=== PATIENT | male | born 1945 | race Caucasian/White ===

== ENCOUNTER → 2016-06-20 | Outpatient (CLI) | payer MEDICARE, OTHER ==
[~2016-06-20] VITALS: Ht 170.2 cm; Wt 114.8 kg
[~2016-06-20] MED LIST: /AUGM875TA; ACET65TA OR; AMITIZA; ASPI325T; ASPI325T OR; ASPIRIN PO; BENI20TA11 OR; CALCTAB93 PO; FISHCAP; FLAG500T; Fish oil OR; LEVSIN; LIDOCAINE 2% INJ 100 MG/5 ML SDV (FOR ANES.) As Ordered ONE; LISI5TAB; LOPR50TA OR; LOVA1CAP17 PO; METO25TAB PO; METO50TA4 OR; MINOCYCLINE PO; MULTLIQ7 PO; NIAC500T; NIAC500T OR; PERC5TAB8; PERCOCET PO; PLAV75TA PO; PLAV75TA2 OR; PROPOFOL 200 MG/20 ML VIAL As Ordered ONE; SENO8.6T9 PO; SIME80TA PO; SIMV20TA2 OR; SIMV20TA2 PO; VICO5TAB OR; ZOFR4TAB3 SL; lomotil; maalox PO
[2016-06-20] MEDS: NS 1,000 ML IV SCH (09:22)
--- NOTE | 2016-06-20 10:08 | ROOR ---
Patient Name: Michi Sheikh Procedure Date: 06/20/2016 9:36 AM Date of : 1945 Age: 71 Room: [facility] Gender: Male Note Status: Finalized Procedure: Colonoscopy Indications: High risk colon cancer surveillance: Personal history of colon cancer Providers: Gerber Zelaya MD Referring MD: ILIA Gerardo Requesting Provider: Medicines: Monitored Anesthesia Care Complications: No immediate complications. Procedure: Pre-Anesthesia Assessment: - Prior to the procedure, a History and Physical was performed, and patient medications and allergies were reviewed. The patient is competent. The risks and benefits of the procedure and the sedation options and risks were discussed with the patient. All questions were answered and informed consent was obtained. Patient identification and proposed procedure were verified by the physician, the nurse and the film processing utility worker in the endoscopy suite. Mental Status Examination: alert and oriented. Airway Examination: normal oropharyngeal airway and neck mobility. Respiratory Examination: clear to auscultation. CV Examination: normal. Prophylactic Antibiotics: The patient does not require prophylactic antibiotics. Prior Anticoagulants: The patient has taken Plavix (clopidogrel), last dose was 5 days prior to procedure. ASA Grade Assessment: III - A patient with severe systemic disease. After reviewing the risks and benefits, the patient was deemed in satisfactory condition to undergo the procedure. The anesthesia plan was to use monitored anesthesia care (MAC). Immediately prior to administration of medications, the patient was re-assessed for adequacy to receive sedatives. The heart rate, respiratory rate, oxygen saturations, blood pressure, adequacy of pulmonary ventilation, and response to care were monitored throughout the procedure. The physical status of the patient was re-assessed after the procedure. The Colonoscope was introduced through the anus and advanced to the ileocolonic anastomosis. The colonoscopy was performed without difficulty. The patient tolerated the procedure well. The quality of the bowel preparation was good. Findings: The perianal and digital rectal examinations were normal. There was evidence of a prior end-to-side colo-rectal anastomosis in the distal rectum. This was patent and was characterized by healthy appearing mucosa. The anastomosis was traversed. Biopsies were taken with a cold forceps for histology. There was evidence of a prior functional end-to-end ileo-colonic anastomosis in the ascending colon. This was patent and was characterized by healthy appearing mucosa. The anastomosis was traversed. No additional abnormalities were found on retroflexion. Impression: - Patent end-to-side colo-rectal anastomosis, characterized by healthy appearing mucosa. Biopsied. - Patent functional end-to-end ileo-colonic anastomosis, characterized by healthy appearing mucosa. Recommendation: - Discharge patient to home (ambulatory). - Repeat colonoscopy in 3 years for surveillance. Gerber Zelaya MD Gerber Zelaya MD 06/20/2016 10:08:22 AM This report has been signed electronically. Number of Addenda: 0 Note Initiated On: 06/20/2016 9:36 AM Estimated Blood Loss: Estimated blood loss was minimal.
[2016-06-20 10:22] VITALS: BP 140/78
== END ==
LOC: M OPP 08:59
PROVIDERS: ATTEND Surgery
DX: Z12.11 Encounter for screening for malignant neoplasm of colon (principal); Z85.038 Personal history of other malignant neoplasm of large intestine; Z85.048 Personal history of other malignant neoplasm of rectum, rectosigmoid junction, and anus; Z86.010 Personal history of colon polyps; Z85.820 Personal history of malignant melanoma of skin; E78.00 Pure hypercholesterolemia, unspecified; I25.10 Atherosclerotic heart disease of native coronary artery without angina pectoris; I10 Essential (primary) hypertension; R23.3 Spontaneous ecchymoses; Z79.82 Long term (current) use of aspirin; Z79.01 Long term (current) use of anticoagulants; Z79.899 Other long term (current) drug therapy; Z98.0 Intestinal bypass and anastomosis status; Z95.5 Presence of coronary angioplasty implant and graft; Z86.14 Personal history of Methicillin resistant Staphylococcus aureus infection; Z87.891 Personal history of nicotine dependence; Z08 Encounter for follow-up examination after completed treatment for malignant neoplasm

== ENCOUNTER → 2017-01-08 | Outpatient (REF) | payer MEDICARE, OTHER ==
[~2017-01-08] MED LIST changes: -LIDOCAINE 2% INJ 100 MG/5 ML SDV (FOR ANES.) As Ordered ONE; +METO25TA4 PO; -METO25TAB PO; +PLAV1TAB2 PO; -PLAV75TA PO; -PROPOFOL 200 MG/20 ML VIAL As Ordered ONE
== END ==
LOC: M LABDRAW1 15:42
PROVIDERS: ATTEND Physician Assistant
DX: M51.36 Other intervertebral disc degeneration, lumbar region (principal)

== ENCOUNTER → 2017-08-07 | Outpatient (CLI) | payer MEDICARE, OTHER | LOC: M EKG 13:43 | DX: Z01.810 Encounter for preprocedural cardiovascular examination (principal); S83.231A Complex tear of medial meniscus, current injury, right knee, initial encounter; X58.XXXA Exposure to other specified factors, initial encounter; Y92.89 Other specified places as the place of occurrence of the external cause; Y93.89 Activity, other specified; Y99.8 Other external cause status | CPT/HCPCS: 93005 ==

== ENCOUNTER 2019-02-15 19:22 | Emergency (ER) | payer MEDICARE, OTHER ==
[~2019-02-15] VITALS: Ht 167.6 cm; Wt 118.2 kg
[~2019-02-15 19:22] MED LIST changes: +ONDA-228 SL; +OXYC1TAB23 PO; -PERCOCET PO; -ZOFR4TAB3 SL
[2019-02-15 21:15] LABS: CK-MB VALUE MASS 1.3 NG/ML (<3.6); CPK CREATINE PHOSPHOKINASE 91 U/L (39-308); MB/CK RELATIVE INDEX 1.43 (< OR =4); TROPONIN I < 0.02 NG/ML (< 0.10)
[2019-02-15 22:31] VITALS: BP 218/92
[2019-02-15] MEDS ORDERED: METOPROLOL TART 25 MG TABLET PO ONE (23:00)
--- NOTE | 2019-02-16 06:36 | ECGEPIP ---
[facility] - ED Test Date: 2019-02-15 Pat Name: MILADIS MCCORMICK Department: Room: - Gender: Male Teleradiologist: ANASTACIA : 1945 Requested By: BELKIS Miller Order Number: [id number] Reading MD: Arcelia Mcnamara Measurements Intervals Candor Rate: 80 P: 57 SC: 186 QRS: -21 QRSD: 98 T: 61 QT: 367 QTc: 425 Interpretive Statements SINUS RHYTHM WITH OCCASIONAL VENTRICULAR PREMATURE COMPLEXES BORDERLINE LEFT AXIS DEVIATION INCOMPLETE RIGHT BUNDLE BRANCH BLOCK NONSPECIFIC ST T WAVE CHANGES CW 08/07/17 RATE INCREASED DECREASED ECTOPY Electronically Signed on 02-16-2019 6:35:53 EDT by Arcelia Mcnamara
== END 2019-02-15 23:27 | disposition home or self-care (01) ==
LOC: M ED 19:22
DX: F41.1 Generalized anxiety disorder (principal); I10 Essential (primary) hypertension; E78.5 Hyperlipidemia, unspecified; I45.19 Other right bundle-branch block; Z91.14 Patient's other noncompliance with medication regimen; Z95.5 Presence of coronary angioplasty implant and graft; Z79.02 Long term (current) use of antithrombotics/antiplatelets; Z79.82 Long term (current) use of aspirin; Z79.899 Other long term (current) drug therapy; I25.10 Atherosclerotic heart disease of native coronary artery without angina pectoris

== ENCOUNTER → 2019-07-11 | Outpatient (CLI) | payer MEDICARE, OTHER ==
[~2019-07-11] MED LIST changes: -SIMV20TA2 PO; +SIMV20TA22 PO
--- NOTE | 2019-07-12 09:02 | REP ---
LEFT HAND COMPLETE: 07/11/2019. Clinical history: Pain and swelling dorsal aspect of the hand. Findings. Some minor soft tissue swelling about the proximal aspect of the metacarpals and the wrist on the lateral view. There is no fracture, avulsion or foreign body identified. No subcutaneous emphysema. I do not see any swelling of the digits. There are degenerative changes at IP joints. MCP joints were intact. No fractures of the phalanges or metacarpals. Carpal bones and the distal radius and ulna show some degenerative spurring but no fracture. Impression: 1. Mild soft-tissue swelling dorsal aspect of the hand and wrist over the proximal metacarpals and carpal bones. 2. Some degenerative changes. Soft tissue swelling but no fracture. Electronically Signed by Rojas Roland MD 07/12/2019 08:16 P
== END ==
LOC: M WUC 15:52
PROVIDERS: ATTEND Physician Assistant
DX: S60.222A Contusion of left hand, initial encounter (principal); M79.89 Other specified soft tissue disorders; M19.042 Primary osteoarthritis, left hand; X58.XXXA Exposure to other specified factors, initial encounter; Y92.9 Unspecified place or not applicable

== ENCOUNTER → 2020-05-14 | Outpatient (CLI) | payer MEDICARE, OTHER ==
[~2020-05-14] MED LIST changes: +DOXA1TAB41 PO; +VASC1CAP2 PO
== END ==
LOC: M LABSMTC 09:22
PROVIDERS: ATTEND Anesthesiology
DX: Z01.812 Encounter for preprocedural laboratory examination (principal); Z20.828 Contact with and (suspected) exposure to other viral communicable diseases

== ENCOUNTER → 2020-06-24 | Outpatient (CLI) | payer MEDICARE, OTHER ==
[~2020-06-24] MED LIST changes: +BAYE81TA10 PO; +ELIQ5TAB; +LOSA25TA14; +MULTTAB61 PO
== END ==
LOC: M LABSMTC 11:09
PROVIDERS: ATTEND Anesthesiology
DX: Z01.812 Encounter for preprocedural laboratory examination (principal); Z20.822 Contact with and (suspected) exposure to COVID-19

== ENCOUNTER 2020-06-29 08:50 | Day surgery (SDC) | payer MEDICARE, OTHER ==
[~2020-06-29] VITALS: Ht 175.3 cm; Wt 107.0 kg
[~2020-06-29 08:50] MED LIST changes: +NS 1,000 ML IV ONE
--- OUTSIDE RECORDS SUMMARY | 2020-06-29 08:54 | CCD | Continuity of Care Document ---
Author Author Michi ALMONTE Organization Unknown Address [address] [place] [address] Phone [phone] Care Team Providers Care Vegetable Loader Machine Operator Name Role Phone Derian Todd MD AUTM [phone] Hiral Moyer N.P. AUTM [phone] Gerber Zelaya MD AUTM [phone] Pancho Sepulveda PA AUTM [phone] Stephy Langford COMPUTER NUMERIC CONTROL SETTER AUTM [phone] Problems Active Problems Provider Date Coronary arteriosclerosis Henrique Escalera MD Onset: 012 Mixed hyperlipidemia Henrique Escalera MD Onset: 11/20/2011 Benign hypertensive heart disease without congestive h eart failure Henrique Escalera MD Onset: 11/20/2011 Patient post percutaneous transluminal coronary angioplasty Henrique Escalera MD Onset: 11/20/2011 Malignant tumor of descending colon Henrique Escalera MD Onse t: 11/20/2011 Preoperative cardiovascular examination Henrique Escalera MD Onset: 04/02/2012 Obesity Henrique Escalera MD Onset: 09/15/2012 Essential hypertension Bibi Anglin NP Onset: 6 Pure hypercholesterolemia Debbi Gonzales MD Onset: 017 Dyspnea Debbi Gonzales MD Onset: 09/24/2016 Pain in limb Debbi Gonzales MD Onset: 09/24/2016 Morbid obesity Suresh Almonte Onset: 019 Chest pain Suresh Almonte Onset: 019 Abnormal results of cardiovascular function studies Suresh Harrington Onset: 02/13/2019 Lumbosacral stenosis Suresh Almonte Onset: 2018 Paroxysmal atrial fibrillation Suresh Almonte Ons et: 05/30/2020 Mitral leaflet abnormality Sarah V Onset: 2019 Social History Type Date Description Comments Sex Unknown Tobacco Use Start: Unknown End: Unknown Quit 1970 Smoking Status Reviewed: 05/30/20 Quit 1970 ETOH Use Denies alcohol use Tobacco Use Start: Unknown End: Unknown Patient is a former smoker Recreational Drug Use Denies Drug Use Allergies, Adverse Reactions, Alerts Description No Known Drug Allergies Medications Active Medications SIG Qnty Indications Ordering Provide r Date Eliquis 5mg Tablets 1 by mouth twice a day 60tabs Suresh Almonte 2019 Simvastatin 40mg Tablets Take One Tablet By Mouth Every Day 90tabs Suresh Almonte 07/2018 Vascepa 1gm Capsules 2 by mouth twice a day 360caps Suresh Almonte 2018 Losartan Potassium 25mg Tablets take one tablet by mouth every day 90tabs Lev Almonte 06/06/2017 Metoprolol Succinate ER 25mg Tablets ER 24HR Take One Tablet By Mouth Every Day 90tabs Suresh Moore 09/21/2014 Nitrostat 0.4mg Tablets Sub 1 tab under tongue, repeat q5 mins x2, as needed for chest pain 25tabs Suresh Almonte 05/07/2014 Asa 81mg Tablets 1 po qd Bibi Anglin NP 02/12/2012 Co Q-10 100mg Capsules 1 by mouth every day prn Unknown Medications Administered in Office Medication SIG Qnty Indications Ordering Provider Date Regadenoson, 0.1 MG Injection Kvng 04/08/2012 Immunizations CPT Code Status Date Vaccine Lot # U-Flu Given 03/17/2020 Influenza,Unspecified U-Flu Given 03/17/2019 Influenza,Unspecified U-Flu Given 03/17/2018 Influenza,Unspecified 11309 Given 10/21/2015 Pneumococcal Immunization Vital Signs Date Vital Result Comment 05/30/2020 12:13pm BP Systolic Left Arm 142 mmHg BP Diastolic Left Arm 80 mmHg Heart Rate 86 /min Height 68 inches 5'8" 05/17/2020 8:29am BP Systolic Left Arm 130 mmHg BP Diastolic Left Arm 78 mmHg Heart Rate 66 /min Weight 241.00 lb Height 68 inches 5'8" BMI (Body Mass Index) 36.6 kg/m2 02/29/20 High Density Lipid 30 Low Density Lipid 37 Triglycerides 140 Total Cholesterol 89 O2 % BldC Oximetry 97 % BSA (Body Surface Area) 2.21 m2 Results Test Acquired Date Facility Test Result H/L Range Note Lipid Extended Panel 02/29/2020 [facility] [address] [place] [address] [phone] Creatine Kinase, Total 99 U/L Normal 44-196 Ast 17 U/L Normal 10-35 Alt 20 U/L Normal 9-46 Lipid 02/29/2020 [facility] [address] [place] [address] [phone] Cholesterol, Total 89 mg/dL Normal <200 HDL Cholesterol 30 mg/dL Low > Or = 40 Triglycerides 140 mg/dL Normal <150 LDL-Cholesterol 37 mg/dL(calc) Normal 1 Chol/HDLC Ratio 3.0 (calc) Normal <5.0 Non HDL Cholesterol 59 mg/dL(calc) Normal <130 2 Martín (SEE NOTE) 3 Laboratory test finding 02/29/2020 [facility] [address] [place], [place] [id number] [phone] Enhanced PDF Report [id number] SEE IMAGE 1 Reference range: <100 Desirable range <100 mg/dL for primary prevention; <70 mg/dL for patients with CHD or diabetic patients with > or = 2 CHD risk factors. LDL-C is now calculated using the Gerardo calculation, which is a validated novel method providing better accuracy than the Friedewald equation in the estimation of LDL-C. Marino RING et al. MENA. 2013;310(19): 4653-2330 (http://education.[employer].[place]/f aq/DDA499) 2 For patients with diabetes p wade 1 major ASCVD risk factor, treating to a non-HDL-C goal of <100 mg/dL (LDL-C of <70 mg/dL) is considered a the rapeutic option. 3 We received your handwritten test order and performed the AMA defined lipid panel. If this is not what you intended to order, please contact your local client relationship consultant immediately so that we may adjust our billing appropriately. You may also inquire about alternative or additional testing. Procedures Date Code Description Status 05/30/2020 54697 Echocardiography W/ECG Includes Cont Monitoring Completed 05/30/2020 98155 Doppler Color Flow Velocity Beronica ing Completed 05/30/2020 98175 Doppler Echocardiography Complet e Completed 05/17/2020 80514 Electrocardiogram Complete Compl eted Medical Devices Description No Information Available Encounters Type Date Location Provider Dx Diagnosis Office Visit 05/30/2020 11:45a [facility] Suresh Hall I25.10 Athscl heart disease of [place] coronary artery w/o ang pctrs I10 Essential (primary) hyperten kristian I48.0 Paroxysmal atrial fibrillati on Office Visit 05/17/2020 8:15a [facility] Z01.810 Encounter for preprocedural cardiovascular examination Z12.11 Encounter for screening for malignant neoplasm of colon I25.10 Athscl heart disease of [place] coronary artery w/o ang pctrs I10 Essential (primary) hyperten kristian E78.2 Mixed hyperlipidemia E66.8 Other obesity Assessments Date Code Description Provider 05/30/2020 I34.9 Nonrheumatic mitral valve disord er, unspecified Suresh Whitman 05/30/2020 I34.9 Nonrheumatic mitral valve disord er, unspecified Sarah V 05/30/2020 I25.10 Atherosclerotic hear t disease of [place] coronary artery without angina pectoris Suresh Almonte 05/30/2020 I25.10 Atherosclerotic hear t disease of [place] coronary artery without angina pectoris Suresh Almonte 05/30/2020 I25.10 Atherosclerotic hear t disease of [place] coronary artery without angina pectoris Sarah V 05/30/2020 I10 Essential (primary) hypertension Ranjbaran-Jahromi, Suresh 05/30/2020 I48.0 Paroxysmal atrial fibrillation R Sofie, [facility] 05/17/2020 Z01.810 Encounter for preprocedural card iovascular examination Gage [facility] 05/17/2020 Z12.11 Encounter for screening for silvino gnant neoplasm of colon Gage [facility] 05/17/2020 I25.10 Atherosclerotic hear t disease of [place] coronary artery without angina pectoris Gage Suresh 05/17/2020 I10 Essential (primary) hypertension Gage [facility] 05/17/2020 E78.2 Mixed hyperlipidemia IlaLillian leonardatierneyotilio, [facility] 05/17/2020 E66.8 Other obesity FeliciaonbrannonSuresh Almendarez i Plan of Treatment Future Appointment(s):* 12/01/2020 1:00 pm - Shefali Waite NP at [facility] Functional Status Description No Information Available Mental Status Description No Information Available Referrals Description No Information Available
--- OUTSIDE RECORDS SUMMARY | 2020-06-29 08:54 | CCD | Continuity of Care Document ---
Author Author Michi Yeung Organization Unknown Address [address] [place] [address] [address] [place] [address] Phone Unavailable Care Team Providers Care Glass Handler Name Role Phone Derian Todd MD AUTM [phone] Hiral Moyer N.P. AUTM [phone] Gerber Zelaya MD AUTM [phone] Pancho Sepulveda AUTM [phone] Stephy Langford FACULTY RESEARCH PHYSICIAN AUTM [phone] Problems Active Problems Provider Date Coronary arteriosclerosis Henrique Escalera MD Onset: 012 Mixed hyperlipidemia Henrique Escalera MD Onset: 11/20/2011 Benign hypertensive heart disease without congestive h eart failure Henrique Ecsalera MD Onset: 11/20/2011 Patient post percutaneous transluminal [...] 02/13/2019 Lumbosacral stenosis Suresh Almonte Onset: 2018 Social History Type Date Description Comments Sex Unknown Tobacco Use Start: Unknown End: Unknown Quit 1970 Smoking Status Reviewed: 09/16/19 Quit 1970 ETOH Use Denies alcohol use Tobacco Use Start: Unknown End: Unknown Patient is a former smoker Recreational Drug Use Denies Drug Use Allergies, Adverse Reactions, Alerts Description No Known Drug Allergies Medications Active Medications SIG Qnty Indications Ordering Provide r Date Simvastatin 40mg Tablets Take One Tablet By Mouth Every Day 90tabs [facility]age Suresh 07/2018 Plavix 75mg Tablets 1 by mouth every day 90tabs TrellLuistierneyotilio Suresh 02/10/2019 Vascepa 1gm Capsules 2 by mouth twice a day 360caps IlaAnatierneyotilioSuresh 2018 Losartan Potassium 25mg Tablets take one tablet by mouth every day 90tabs FelicianoKirillLev man 06/06/2017 Metoprolol Succinate ER 25mg Tablets ER 24HR Take One Tablet By Mouth Every Day 90tabs Irvinefrenelizabeth Teddy Suresh 09/21/2014 Nitrostat 0.4mg Tablets Sub 1 tab under tongue, repeat q5 mins x2, as needed for chest pain 25tabs IrvinharshaledaVilma Suresh 05/07/2014 Asa 81mg Tablets 1 po qd Bibi Anglin NP 02/12/2012 Co Q-10 100mg Capsules 1 by mouth every day prn Unknown Medications Administered in Office Medication SIG Qnty Indications Ordering Provider Date Regadenoson, 0.1 MG Injection Kvng 04/08/2012 Immunizations CPT Code Status Date Vaccine Lot # U-Flu Given 03/17/2020 Influenza,Unspecified U-Flu Given 03/17/2019 Influenza,Unspecified U-Flu Given 03/17/2018 Influenza,Unspecified 74196 Given 10/21/2015 Pneumococcal Immunization Vital Signs Date Vital Result Comment 05/17/2020 8:29am BP Systolic Left Arm 130 mmHg BP Diastolic Left Arm 78 mmHg Heart Rate 66 /min Weight 241.00 lb Height 68 inches 5'8" BMI (Body Mass Index) 36.6 kg/m2 02/29/20 High Density Lipid 30 Low Density Lipid 37 Triglycerides 140 Total Cholesterol 89 O2 % BldC Oximetry 97 % BSA (Body Surface Area) 2.21 m2 03/18/2019 3:52pm BP Systolic Left Arm 116 mmHg BP Diastolic Left Arm 70 mmHg Heart Rate 62 /min Weight 266.12 lb Height 68 inches 5'8" BMI (Body Mass Index) 40.5 kg/m2 O2 % BldC Oximetry 97 % BSA (Body Surface Area) 2.31 m2 Results Test Acquired Date Facility Test Result H/L Range Note Lipid Extended Panel 02/29/2020 [facility] [address] [place] [address] [phone] Creatine Kinase, Total 99 U/L Normal 44-196 Ast 17 U/L Normal 10-35 Alt 20 U/L Normal 9-46 Lipid 02/29/2020 [facility] [address] [place] [address] [phone] Cholesterol, Total 89 mg/dL Normal <200 HDL Cholesterol 30 mg/dL Low > Or = 40 Triglycerides 140 mg/dL Normal <150 LDL-Cholesterol 37 mg/dL(calc) Normal 1 Chol/HDLC Ratio 3.0 (calc) Normal <5.0 Non HDL Cholesterol 59 mg/dL(calc) Normal <130 2 Martín (SEE NOTE) 3 Laboratory test finding 02/29/2020 [facility] [address] [place], [place] [id number] [phone] Enhanced PDF Report [id number] SEE IMAGE 1 Reference range: <100 Desirable range <100 mg/dL for primary prevention; <70 mg/dL for patients with CHD or diabetic patients with > or = 2 CHD risk factors. LDL-C is now calculated using the Gerardo calculation, which is a validated novel method providing better accuracy than the Friedewald equation in the estimation of LDL-C. Marino RING et al. MENA. 2013;310(19): 5283-2723 (http://education.[employer]/f aq/HJD157) 2 For patients with diabetes p wade 1 major ASCVD risk factor, treating to a non-HDL-C goal of <100 mg/dL (LDL-C of <70 mg/dL) is considered a the rapeutic option. 3 We received your handwritten test order and performed the AMA defined lipid panel. If this is not what you intended to order, please contact your local client administrator immediately so that we may adjust our billing appropriately. You may also inquire about alternative or additional testing. Procedures Date Code Description Status 05/30/2020 23638 Echocardiography W/ECG Includes Cont Monitoring Completed 05/17/2020 02854 Electrocardiogram Complete Compl eted Medical Devices Description No Information Available Encounters Type Date Location Provider Dx Diagnosis Office Visit 05/17/2020 8:15a [facility] Suresh Hall I25.10 Athscl heart disease of [place] coronary artery w/o ang pctrs I10 Essential (primary) hyperten kristian E78.2 Mixed hyperlipidemia E66.8 Other obesity Assessments Date Code Description Provider 05/30/2020 I25.10 Atherosclerotic hear t disease of [place] coronary artery without angina pectoris Sarah V 05/30/2020 R07.9 Chest pain, unspecified Sarah V 05/17/2020 I25.10 Atherosclerotic hear t disease of [place] coronary artery without angina pectoris Suresh Almonte 05/17/2020 I10 Essential (primary) hypertension Suresh Almonte 05/17/2020 E78.2 Mixed hyperlipidemia Suresh Matthew 05/17/2020 E66.8 Other obesity Suresh Ford i Plan of Treatment Future Appointment(s):* 07/04/2020 11:15 am - Suresh Almonte at [facility] Functional Status Description No Information Available Mental Status Description No Information Available Referrals Description No Information Available
--- OUTSIDE RECORDS SUMMARY | 2020-06-29 08:54 | CCD | Continuity of Care Document ---
Author Author Michi YANCEY Organization Unknown Address [address] [facility] [address] [place] [address] Phone [phone] Care Team Providers Care Corporate Traffic Manager Name Role Phone Derian Todd MD AUTM [phone] Hiral Moyer N.P. AUTM [phone] Gerber Zelaya MD AUTM [phone] Pancho Sepulveda PA AUTM [phone] Stephy Langford SOCIAL SERVICES MANAGER AUTM [phone] Problems Active Problems Provider Date Coronary arteriosclerosis Henrique Escalera MD Onset: 012 Mixed hyperlipidemia Henrique Escalera MD Onset: 11/20/2011 Benign hypertensive heart disease without congestive h eart failure Henrique Escalera MD Onset: 11/20/2011 Patient post percutaneous transluminal coronary angioplasty Henrique Escalera MD Onset: 11/20/2011 Malignant tumor of descending colon Henrique Escalera MD Onse t: 11/20/2011 Preoperative cardiovascular examination Henrique sEcalera MD Onset: 04/02/2012 Obesity Henrique Escalera MD Onset: 09/15/2012 Essential hypertension Bibi Anglin NP Onset: 6 Pure hypercholesterolemia Debbi Gonzales MD Onset: 017 Dyspnea Debbi Gonzales MD Onset: 09/24/2016 Pain in limb Debbi Gonzales MD Onset: 09/24/2016 Morbid obesity Suresh Yancey Onset: 019 Chest pain Suresh Yancey Onset: 019 Abnormal results of cardiovascular function studies Suresh Harrington Onset: 02/13/2019 Lumbosacral stenosis Suresh Yancey Onset: 2018 Paroxysmal atrial fibrillation Suresh Yancey Ons et: 05/30/2020 Mitral leaflet abnormality Sarah [...] 1 by mouth twice a day 60tabs Gage Suresh 2019 Simvastatin 40mg Tablets Take One Tablet By Mouth Every Day 90tabs Suresh Yancey 07/2018 Vascepa 1gm Capsules 2 by mouth twice a day 360caps Suresh Yancey 2018 Losartan Potassium 25mg Tablets take one tablet by mouth every day 90tabs AlonzotierneyLev yañez 06/06/2017 Metoprolol Succinate ER 25mg Tablets ER 24HR Take One Tablet By Mouth Every Day 90tabs Pete wrightVilma Suresh 09/21/2014 Nitrostat 0.4mg Tablets Sub 1 tab under tongue, repeat q5 mins x2, as needed for chest pain 25tabs TrellAlexsander Suresh 05/07/2014 Asa 81mg Tablets 1 po qd Bibi Anglin NP 02/12/2012 Co Q-10 100mg Capsules 1 by mouth every day prn Unknown Medications Administered in Office Medication SIG Qnty Indications Ordering Provider Date Regadenoson, 0.1 MG Injection Kvng 04/08/2012 Immunizations CPT Code Status Date Vaccine Lot # U-[id number] Given 03/17/2020 Influenza,Unspecified U-Flu Given 03/17/2019 Influenza,Unspecified U-Flu Given 03/17/2018 Influenza,Unspecified [id number] Given 10/21/2015 Pneumococcal Immunization Vital Signs Date [...] Date Facility Test Result H/L Range Note CBC W/Automated Diff 06/22/2020 [facility] CBC W/Automated Diff (SEE NOTE) 1 WBC 6.5 10^3/uL 4.2 - 11.0 RBC 4.72 10^6/uL 4.50 - 6.30 Hemoglobin 15.2 g/dL 14.0 - 16.0 Hematocrit 44.3 % 41.0 - 51.0 MCV 93.9 fL 80.0 - 94.0 MCH 32.2 pg 27.0 - 34.0 MCHC 34.3 g/dL 31.0 - 36.0 RDW 11.6 % 11.5 - 14.8 Platelets 293 10^3/uL 150 - 450 MPV 8.9 fL 7.4 - 10.4 Neut 58.5 % 37.0 - 80.0 Lymph 29.6 % 25.0 - 40.0 [place] 8.5 % High 3.0 - 8.0 Eos 2.3 % 0.0 - 7.0 Baso 0.6 % 0.0 - 2.0 %Ig 0.5 % High 0.0 - 0.0 %NRBC 0.0 % 0.0 - 0.0 #Neut 3.77 10^3/uL 2.00 - 6.90 #Lymph 1.91 10^3/uL 0.60 - 3.40 #[place] 0.55 10^3/uL 0.00 - 0.90 #Eos 0.15 10^3/uL 0.00 - 0.70 #Baso 0.04 10^3/uL 0.00 - 0.20 #Ig 0.03 10^3/uL 0.00 - 0.10 #NRBC 0.00 10^3/uL 0.00 - 0.00 Manual Diff NOT INDICATED RBC Morph NOT INDICATED Lab - Unable To Process Specimen 06/21/2020 [facility] - Specimen Rejec (SEE NOTE) 2 Test(s) Ordered CBCW/DIFF Rejection Reason No Spec Received 3 Basic Metabolic Panel 06/21/2020 [facility] Basic Metabolic Pane (SEE NOTE) 4, 5 Sodium 138 mEq/L 134 - 153 Potassium 4.3 mEq/L 3.6 - 5.0 Chloride 98 mEq/L 98 - 107 Co2 30 mEq/L 22 - 30 Glucose 100 mg/dL 65 - 110 BUN 20 mg/dL 7 - 21 Creatinine 0.9 mg/dL 0.7 - 1.5 BUN/Creat 22 8 - 27 Calcium 10.3 mg/dL High 8.4 - 10.2 Anion Gap 10.0 mmol/L 8.0 - 16.0 Age 75 yrs Afr Amer GFR >60 mL/min Non-Aa GFR >60 mL/min 6 Laboratory test finding 06/21/2020 [facility] l T4 - Free 0.95 ng/dL 0.93 - 1.70 TSH Highly Sensitive 8.77 uIU/mL High 0.47 - 5.01 Lipid Extended Panel 02/29/2020 [facility] [address] [place] [address] [address] [place], [place] [id number] [phone] Creatine Kinase, Total 99 U/L Normal 44-196 Ast 17 U/L Normal 10-35 Alt 20 U/L Normal 9-46 Lipid 02/29/2020 [facility] [address] [place] [address] RD [address] [place], [place] [id number] [phone] Cholesterol, Total 89 mg/dL Normal <200 HDL Cholesterol 30 mg/dL Low > Or = 40 Triglycerides 140 mg/dL Normal <150 LDL-Cholesterol 37 mg/dL(calc) Normal 7 Chol/HDLC Ratio 3.0 (calc) Normal <5.0 Non HDL Cholesterol 59 mg/dL(calc) Normal <130 8 Martín (SEE NOTE) 9 Laboratory test finding 02/29/2020 [facility] [address] [place] [address] [address] [place], [place] [id number] [phone] Enhanced PDF Report [id number] SEE IMAGE 1 COMPLETE BLOOD COUNT 2 Specimen Integrity/Specimen Recollection The patient sample needs to be resubmitted for the following reason: 3 No Spec Received { One or more of the tests you ordered cannot be performed. { Please recollect, reorder, and resubmit if needed. 4 Is patient fasting? N 5 BASIC METABOLIC PANEL 6 Male GFR Interprentation 20-49 yrs >60 mL/min Normal 50-59 yrs >56 mL/min Normal 60-69 yrs >49 mL/min Normal 70-79yrs >42 mL/min Normal 80 and above >35 mL/min Normal Female GFR Interpretation 20-39 yrs >60 mL/min Normal 40-49 yrs >58 mL/min Normal 50-59 yrs >51 mL/min Normal 60-69 yrs >45 mL/min Normal 70-79 yrs >39 mL/min Normal 80 and above >32 mL/min Normal 7 Reference range: <100 Desirable range <100 mg/dL for primary prevention; <70 mg/dL for patients with CHD or diabetic patients with > or = 2 CHD risk factors. LDL-C is now calculated using the Marino-Marion calculation, which is a validated novel method providing better accuracy than the Friedewald equation in the estimation of LDL-C. Marino SS et al. MENA. 2013;310(19): 1922-7205 (http://education.[employer].com/f aq/BIT841) 8 For patients with diabetes p wade 1 major ASCVD risk factor, treating to a non-HDL-C goal of <100 mg/dL (LDL-C of <70 mg/dL) is considered a the rapeutic option. 9 We received your handwritten test order and performed the AMA defined lipid panel. If this is not what you intended to order, please contact your local client services director immediately so that we may adjust our billing appropriately. You may also inquire about alternative or additional testing. Procedures Date Code Description Status 05/30/2020 02972 Echocardiography W/ECG Includes Cont Monitoring Completed 05/30/2020 74402 Doppler Color Flow Velocity Beronica ing Completed 05/30/2020 09329 Doppler Echocardiography Complet e Completed 05/17/2020 02503 Electrocardiogram Complete Compl eted Medical Devices Description No Information Available Encounters Type Date Location Provider Dx Diagnosis [facility] Athscl heart disease of [place] coronary artery w/o ang pctrs I10 Essential (primary) hyperten kristian I48.0 Paroxysmal atrial fibrillati on Office Visit 05/17/2020 8:15a [facility] Feliciano hertoritoDavidheber, Suresh Z01.810 Encounter for preprocedural cardiovascular examination Z12.11 Encounter for screening for malignant neoplasm of colon I25.10 Athscl heart disease of [place] coronary artery w/o ang pctrs I10 Essential (primary) hyperten kristian E78.2 Mixed hyperlipidemia E66.8 Other obesity Assessments Date Code Description Provider 05/30/2020 I34.9 Nonrheumatic mitral valve disord er, unspecified Pallavian- Davidhromi, [facility] 05/30/2020 I34.9 Nonrheumatic mitral valve disord er, unspecified Sarah V 05/30/2020 I25.10 Atherosclerotic hear t disease of [place] coronary artery without angina pectoris Pallavian-Davidhromi, [facility] 05/30/2020 I25.10 Atherosclerotic hear t disease of [place] coronary artery without angina pectoris Pallavian-Davidhromi, [facility] 05/30/2020 I25.10 Atherosclerotic hear t disease of [place] coronary artery without angina pectoris Sarah V 05/30/2020 I10 Essential (primary) hypertension Pallavian-Davidhromi, [facility] 05/30/2020 I48.0 Paroxysmal atrial fibrillation R josue-Luisomi, [facility] 05/17/2020 Z01.810 Encounter for preprocedural card iovascular examination Ila-Luisomi, [facility] 05/17/2020 Z12.11 Encounter for screening for silvino gnant neoplasm of colon Pallavian-Luisomi, [facility] 05/17/2020 I25.10 Atherosclerotic hear t disease of [place] coronary artery without angina pectoris Pallavian-Davidhromi, [facility] 05/17/2020 I10 Essential (primary) hypertension Pallavian-Davidhromi, [facility] 05/17/2020 E78.2 Mixed hyperlipidemia Ranharshalan-J ahromi, [facility] 05/17/2020 E66.8 Other obesity Suresh Ford i Plan of Treatment Future Appointment(s):* 12/01/2020 1:00 pm - Shefali Waite NP at [facility] Functional Status Description No Information Available Mental Status Description No Information Available Referrals Description No Information Available
--- OUTSIDE RECORDS SUMMARY | 2020-06-29 08:54 | CCD | Continuity of Care Document ---
Author Author Michi Yeung Organization Unknown Address [address] [place] [address] [address] [place] [address] Phone Unavailable Care Team Providers Care Physician Chief Of Pathology Name Role Phone Derian Todd MD AUTM [phone] Hiral Moyer N.P. AUTM [phone] Gerber Zelaya MD AUTM [phone] Pancho Sepulveda AUTM [phone] Stephy Langford MAINFRAME SYSTEMS ENGINEER AUTM [phone] Problems Active Problems Provider Date Coronary arteriosclerosis [...] Debbi Gonzales MD Onset: 09/24/2016 Morbid obesity Suersh Almonte Onset: 019 Chest pain Suresh Almonte Onset: 019 Abnormal results of cardiovascular function studies Suresh Harrington Onset: 02/13/2019 Lumbosacral stenosis Suresh Almonte Onset: 2018 Paroxysmal atrial fibrillation Suresh Almonte Ons et: 05/30/2020 Mitral leaflet abnormality Sarah Duran Onset: 2019 Social History Type Date Description [...] 1 by mouth twice a day 60tabs TrellAlexsander Suresh 2019 Simvastatin 40mg Tablets Take One Tablet By Mouth Every Day 90tabs Gage Suresh 07/2018 Vascepa 1gm Capsules 2 by mouth twice a day 360caps IrvinFredis Suresh 2018 Losartan Potassium 25mg Tablets take one tablet by mouth every day 90tabs IlaBrodyAlexsanderLev man 06/06/2017 Metoprolol Succinate ER 25mg Tablets ER 24HR Take One Tablet By Mouth Every Day 90tabs IrvinSuresh Black 09/21/2014 Nitrostat 0.4mg Tablets Sub 1 tab [...] Given 03/17/2019 Influenza,Unspecified U-Flu Given 03/17/2018 Influenza,Unspecified 63828 Given 10/21/2015 Pneumococcal Immunization Vital Signs Date [...] H/L Range Note Lipid Extended Panel 02/29/2020 [facility] [address] [place] [address] [phone] Creatine Kinase, Total 99 U/L Normal 44-196 Ast 17 U/L Normal 10-35 Alt 20 U/L Normal 9-46 Lipid 02/29/[address] [facility] [address] [place] [address] [phone] Cholesterol, Total 89 mg/dL Normal <200 HDL Cholesterol 30 mg/dL Low > Or = 40 Triglycerides 140 mg/dL Normal <150 LDL-Cholesterol 37 mg/dL(calc) Normal 1 Chol/HDLC Ratio 3.0 (calc) Normal <5.0 Non HDL Cholesterol 59 mg/dL(calc) Normal <130 2 Martín (SEE NOTE) 3 Laboratory test finding 02/29/2020 [facility] [address] [place], [place] [id number] [phone] Enhanced PDF Report [id number] SEE IMAGE 1 Reference range: <100 Desirable range <100 mg/dL for primary prevention; <70 mg/dL for patients with CHD or diabetic patients with > or = 2 CHD risk factors. LDL-C is now calculated using the Marino-Marion calculation, which is a validated novel method providing better accuracy than the Friedewald equation in the estimation of LDL-C. Marino RING et al. MENA. 2013;310(19): 9658-7406 (http://education.[employer].Brightpearl/f aq/XEV678) 2 For patients with diabetes p wade 1 major ASCVD risk factor, treating to a non-HDL-C goal of <100 mg/dL (LDL-C of <70 mg/dL) is considered a the rapeutic option. 3 We received your handwritten test order and performed the AMA defined lipid panel. If this is not what you intended to order, please contact your local new client banking services clerk immediately so that we may adjust our billing appropriately. You may also inquire about alternative or additional testing. Procedures Date Code Description Status 05/30/2020 60087 Echocardiography W/ECG Includes Cont Monitoring Completed 05/30/2020 81464 Doppler Color Flow Velocity Beronica ing Completed 05/30/2020 55762 Doppler Echocardiography Complet e Completed 05/17/2020 00486 Electrocardiogram Complete Compl eted Medical Devices Description No Information Available Encounters Type Date Location Provider Dx Diagnosis Office Visit 05/30/2020 11:45a [facility] Suresh Hall I25.10 Athscl heart disease of [place] coronary artery w/o ang pctrs I10 Essential (primary) hyperten kristian Z01.810 Encounter for preprocedural cardiovascular examination I48.0 Paroxysmal atrial fibrillati on Office Visit 05/17/2020 8:15a [facility] Suresh Hall I25.10 Athscl heart disease of [place] coronary artery w/o ang pctrs I10 Essential (primary) hyperten kristian E78.2 Mixed hyperlipidemia E66.8 Other obesity Assessments Date Code Description Provider 05/30/2020 I34.9 Nonrheumatic mitral valve disord er, unspecified Trell Beltre Suresh 05/30/2020 I34.9 Nonrheumatic mitral valve disord er, unspecified Sarah V 05/30/2020 I25.10 Atherosclerotic hear t disease of [place] coronary artery without angina pectoris Suresh Almonte 05/30/2020 I25.10 Atherosclerotic hear t disease of [place] coronary artery without angina pectoris Gage Suresh 05/30/2020 I25.10 Atherosclerotic hear t disease of [place] coronary artery without angina pectoris Sarah V 05/30/2020 I10 Essential (primary) hypertension Suresh Almonte 05/30/2020 Z01.810 Encounter for preprocedural card iovascular examination Suresh Almonte 05/30/2020 I48.0 Paroxysmal atrial fibrillation R Sofie Suresh 05/17/2020 I25.10 Atherosclerotic hear t disease of [place] coronary artery without angina pectoris Suresh Almonte 05/17/2020 I10 Essential (primary) hypertension Suresh Almonte 05/17/2020 E78.2 Mixed hyperlipidemia Karmen porras Suresh 05/17/2020 E66.8 Other obesity Suresh Ford i Plan of Treatment Future Appointment(s):* 12/01/2020 1:00 pm - Shefali Waite NP at [facility] Functional Status Description No Information Available Mental Status Description No Information Available Referrals Description No Information Available
--- OUTSIDE RECORDS SUMMARY | 2020-06-29 08:54 | CCD | Continuity of Care Document ---
Author Author [facility] Unknown Address [address] [place] [address] [address] [place] [address] Phone [phone] Care Team Providers Care Food Technology Teacher Name Role Phone Stephy Langford AUTM [phone] Suresh Almonte MD AUTM Unavailable Problems Active Problems Provider Date Essential hypertension AMY Quan, PNP Onset: 2018 Social History Type Date Description Comments Sex Unknown ETOH Use Denies alcohol use Tobacco Use Start: Unknown End: Unknown Patient is a former smoker Quit 1969 Recreational Drug Use Denies Drug Use Guns in Home Yes, Locked Up Smoke Alarms No Smoke Alarms Carbon Monoxide Detector: No Allergies, Adverse Reactions, Alerts Active Allergies Reaction Severity Comments Date NKEA 02/18/2019 NKFA 02/18/2019 Flomax Low Back Pain, resolved d/c Mild 05/16/2019 Inactive Allergies NKDA 02/18/2019 Medications Active Medications SIG Qnty Indications Ordering Provide r Date Doxazosin Mesylate 2mg Tablets Take One Tablet By Mouth Every Evening 30tabs AMY Quan , PNP 05/06/2019 Metoprolol Succinate ER 25mg Tablets ER 24HR 1 by mouth every day 30tabs Unknown 0 000 Clopidogrel Bisulfate 75mg Tablets 1 by mouth every day 90tabs Unknown Vascepa 1gm Capsules 1 by mouth twice a day Unknown Losartan Potassium 25mg Tablets 1 by mouth every day 30tabs Unknown Simvastatin 40mg Tablets 1 by mouth every day Unknown Aspirin Adult Low Strength 81mg Tablets DR 1 by mouth every day Unknown 0 000 Immunizations CPT Code Status Date Vaccine Lot # [id number] Given 03/21/2019 Influenza (>= 6 Months) P.F. Vaccine Vital Signs Date Vital Result Comment 06/18/2019 9:08am BP Systolic 140 mmHg BP Diastolic 70 mmHg Heart Rate 76 /min Body Temperature 98.2 F Respiratory Rate 18 /min O2 % BldC Oximetry 97 % Weight 287.00 lb Weight 130.183 kg Height 69 inches 5'9" BMI (Body Mass Index) 42.4 kg/m2 BSA (Body Surface Area) 2.41 m2 02/18/2019 9:04am BP Systolic 120 mmHg BP Diastolic 72 mmHg Heart Rate 67 /min Body Temperature 97.9 F Respiratory Rate 16 /min O2 % BldC Oximetry 92 % Weight 266.50 lb Weight 120.884 kg Height 69 inches 5'9" BMI (Body Mass Index) 39.4 kg/m2 BSA (Body Surface Area) 2.33 m2 Results Description No Information Available Procedures Description No Information Available Medical Devices Description No Information Available Encounters Description No Information Available Assessments Date Code Description Provider 06/21/2020 Z12.5 Encounter for screening for silvino gnant neoplasm of prostate [facility] Plan of Treatment Future Appointment(s):* 06/28/2020 11:20 am - AMY Quan, PNP at [facility] 06/18/2019 - AMY Quan, PNP* R97.20 Elevated prostate specific antigen [PSA]* Comments:* 2015 PSA 1.4709 PSA 3.3Due to pt's FH and Personal Hx Colon Cancer, pt has concerns about increasing PSA * Z12.11 Encounter for screening for malignant neoplasm of colon* Referral:* Gerber Zelaya, * I25.110 Atherosclerotic heart disease of [place] coronary artery with unstable angina pectoris* Comments:* PET positive for LAD Lesion. Coronary Angioplasty 03/04/19 Stent placed LAD, Stent placed Obtuse MarginalGood recovery, no further SOB or angina * Z95.5 Presence of coronary angioplasty implant and graft * E78.00 Pure hypercholesterolemia, unspecified* Comments:* Due for labs, cardiology will be doing labs this month, he can get them done there.FU 3 months, fasting labs 1 wk prior * N40.1 Benign prostatic hyperplasia with lower urinary tract symptoms* Comments:* Has never had Prostate Bx Functional Status Description No Information Available Mental Status Description No Information Available Referrals Description No Information Available
--- OUTSIDE RECORDS SUMMARY | 2020-06-29 08:54 | CCD | Continuity of Care Document ---
Author Author [facility] Unknown Address [address] [place] [address] [address] [place] [address] Phone [phone] Care Team Providers Care Strapping Machine Operator Name Role Phone Stephy Langford AUTM [phone] Suresh Amlonte MD AUTM Unavailable Problems Active Problems Provider [...] CPT Code Status Date Vaccine Lot # [id number] Given 03/21/2019 Influenza (>= 6 Months) P.F. [...] BSA (Body Surface Area) 2.33 m2 Results Test Acquired Date Facility Test Result H/L Range Note Laboratory test finding 06/21/2020 [facility] PSA - Diagnostic 3.93 ng/mL 0.00 - 4.00 1 1 \\BLDo\\PSA INTERPRETATION\\BLD x\\ The PSA assay should not be used alone for a screening test or diagnosis for presence or absence of malignant disease. Predictions of disease recurrence should not be based solely on values obtained from serial patient serum values. The PSA result was determined by "[employer]", on the Jeffry ANA 6000. Values obtained with different assay methods or kits cannot be used interchangeably. Procedures Description No Information Available Medical Devices Description No Information Available Encounters Description No Information Available Assessments Date Code Description Provider 06/21/2020 Z12.5 Encounter for screening for silvino gnant neoplasm of prostate [facility] Plan of Treatment Future Appointment(s):* 06/28/2020 11:20 am - AMY Quan, PNP at [facility] 06/18/2019 - AMY Quan, PNP* R97.20 Elevated prostate specific antigen [PSA]* Comments:* 2015 PSA 1.47002/18/2019 PSA 3.3Due to pt's FH and Personal Hx Colon Cancer, pt has concerns about increasing PSA * Z12.11 Encounter for screening for malignant neoplasm of colon* Referral:* Gerber Zelaya, * I25.110 Atherosclerotic heart disease of [place] coronary artery with unstable angina pectoris* Comments:* [...]
--- OUTSIDE RECORDS SUMMARY | 2020-06-29 08:54 | CCD | Continuity of Care Document ---
Author Author Michi ALMONTE Organization Unknown Address [address] [place] [address] Phone [phone] Care Team Providers Care Skin Specialist Name Role Phone Derian Todd MD AUTM [phone] Hiral Moyer N.P. AUTM [phone] Gerber Zelaya MD AUTM [phone] Pancho Sepulveda PA AUTM [phone] Stephy Langford GREENSKEEPER SUPERVISOR AUTM [phone] Problems Active Problems Provider Date Coronary arteriosclerosis [...] Given 03/17/2019 Influenza,Unspecified U-Flu Given 03/17/2018 Influenza,Unspecified 98704 Given 10/21/2015 Pneumococcal Immunization Vital Signs Date [...] H/L Range Note Lipid Extended Panel 02/29/2020 [facility] [address] [place] [address] [phone] Creatine Kinase, Total 99 U/L Normal 44-196 Ast 17 U/L Normal 10-35 Alt 20 U/L Normal 9-46 Lipid 02/29/2020 [facility] [address] [place] [address] [phone] Cholesterol, Total 89 mg/dL Normal <200 HDL Cholesterol 30 mg/dL Low > Or = 40 Triglycerides 140 mg/dL Normal <150 LDL-Cholesterol 37 mg/dL(calc) Normal 1 Chol/HDLC Ratio 3.0 (calc) Normal <5.0 Non HDL Cholesterol 59 mg/dL(calc) Normal <130 2 Martín (SEE NOTE) 3 Laboratory test finding 02/29/2020 [facility] [address] [place], [place] [id number] [phone] Enhanced PDF Report [id number] SEE IMAGE 1 Reference range: <100 Desirable range <100 mg/dL for primary prevention; <70 mg/dL for patients with CHD or diabetic patients with > or = 2 CHD risk factors. LDL-C is now calculated using the Gerardo calculation, which is a validated novel method providing better accuracy than the Friedewald equation in the estimation of LDL-C. Marino RING et al. MENA. 2013;310(19): 3202-6640 (http://education.Swidjit.Convozine/f aq/SQG428) 2 For patients with diabetes p wade 1 major ASCVD risk factor, treating to a non-HDL-C goal of <100 mg/dL (LDL-C of <70 mg/dL) is considered a the rapeutic option. 3 We received your handwritten test order and performed the AMA defined lipid panel. If this is not what you intended to order, please contact your local patient support representative immediately so that we may adjust our billing appropriately. You may also inquire about alternative or additional testing. Procedures Date Code Description Status 05/30/2020 20373 Echocardiography W/ECG Includes Cont Monitoring Completed 05/30/2020 50982 Doppler Color Flow Velocity Beronica ing Completed 05/30/2020 27562 Doppler Echocardiography Complet e Completed 05/17/2020 77922 Electrocardiogram Complete Compl eted Medical Devices Description No Information Available Encounters Type Date Location Provider Dx Diagnosis Office Visit 05/30/2020 11:45a [facility] Suresh Hall I25.10 Athscl heart disease of [place] coronary artery w/o ang pctrs I10 Essential (primary) hyperten kristian I48.0 Paroxysmal atrial fibrillati on Office Visit 05[facility]17[facility]2020 8[facility] Z01.810 Encounter for preprocedural [...] 05/30/2020 I25.10 Atherosclerotic hear t disease of [place] coronary artery without angina pectoris Suresh Almonte 05/30/2020 I25.10 Atherosclerotic hear t disease of [place] coronary artery without angina pectoris Suresh Almonte 05/30/2020 I25.10 Atherosclerotic hear t disease of [place] coronary artery without angina pectoris Sarah V 05/30/2020 I10 Essential (primary) hypertension Ranjbaran-Jahromi, Suresh 05/30/2020 I48.0 Paroxysmal atrial fibrillation R Sofie, [facility] 05/17/2020 Z01.810 Encounter for preprocedural card iovascular examination [facility] 05/17/2020 Z12.11 Encounter for screening for silvino gnant neoplasm of colon [facility] 05/17/2020 I25.10 Atherosclerotic hear t disease of [place] coronary artery without angina pectoris [facility] Suresh 05/17/2020 I10 Essential (primary) hypertension [facility] 05/17/2020 E78.2 Mixed hyperlipidemia IlaLillian leonardatierneyotilio, [facility] 05/17/2020 E66.8 Other obesity FelicianobrannonSuresh Almendarez i Plan of Treatment Future Appointment(s):* 12/01/2020 1:00 pm - Shefali Waite NP at [facility] Functional Status Description No Information Available Mental Status Description No Information Available Referrals Description No Information Available
--- OUTSIDE RECORDS SUMMARY | 2020-06-29 08:54 | CCD | Continuity of Care Document ---
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 Onset: 11/20/2011 Chest pain Onset: 02/10/2019 Coronary arteriosclerosis Onset: 012 Dyspnea Onset: 09/24/2016 Lumbosacral stenosis Onset: 02/10/2019 Malignant tumor of descending colon Onse t: 11/20/2011 Mixed hyperlipidemia Onset: 11/20/2011 Social History Type Date Description Comments Sex Unknown Tobacco Use Start: Unknown End: Quit Tobacco Use Start: Unknown Never Smoked Cigars Tobacco Use Start: Unknown Never Smoked A Pipe Tobacco Use Start: Unknown Never Used Smokeless Tobacco ETOH Use Denies alcohol use Tobacco Use Start: Unknown End: Unknown Patient is a former smoker Recreational Drug Use Denies Drug Use Guns in Home Yes, Locked Up Smoke Alarms No Smoke Alarms Carbon Monoxide Detector: No Allergies, Adverse Reactions, Alerts Active Allergies Reaction Severity Comments Date NKEA 02/18/2019 NKFA 02/18/2019 Flomax Low Back Pain, resolved d/c Mild 05/16/2019 Inactive Allergies NKDA 02/18/2019 Medications Active Medications SIG Qnty Indications Ordering Provide r Date Flomax 0.4mg Capsules 1 by mouth every day 30caps AMY Quan, PNP 06/28/19 21 Levothyroxine Sodium 50mcg Capsule s 1 tablet by mouth 1/2 hour before any other meds or food 90caps YAZMIN Quan- BC, PNP 06/28/2020 Vascepa 1gm Capsules 2 by mouth twice a day 360Suresh Montana MD 07/2018 Nitrostat 0.4mg Tablets Sub 1 tab under tongue, repeat q5 mins x2, as needed for chest pain 25tabs Suresh Almonte MD 05/07/2014 Metoprolol Succinate ER 25mg Tablets ER 24HR 1 by mouth every day 30tabs Unknown 0 000 Losartan Potassium 25mg Tablets 1 by mouth every day 30tabs Unknown Simvastatin 40mg Tablets 1 by mouth every day Unknown Aspirin Adult Low Strength 81mg Tablets DR 1 by mouth every day Unknown 0 000 Eliquis 5mg Tablets 1 by mouth twice a day 60tabs Suresh Almonte MD Immunizations CPT Code Status Date Vaccine Lot # [id number] Given 03/21/2019 Influenza (>= 6 Months) P.F. Vaccine Vital Signs Date Vital Result Comment 06/28/2020 11:26am BP Systolic 128 mmHg BP Diastolic 72 mmHg Heart Rate 58 /min Body Temperature 97.2 F Respiratory Rate 18 /min O2 % BldC Oximetry 97 % Weight 240.12 lb Weight 108.921 kg Height 69 inches 5'9" BMI (Body Mass Index) 35.5 kg/m2 BSA (Body Surface Area) 2.23 m2 06/18/2019 9:08am BP Systolic 140 mmHg BP Diastolic 70 mmHg Heart Rate 76 /min Body Temperature 98.2 F Respiratory Rate 18 /min O2 % BldC Oximetry 97 % Weight 287.00 lb Weight 130.183 kg Height 69 inches 5'9" BMI (Body Mass Index) 42.4 kg/m2 BSA (Body Surface Area) 2.41 m2 Results Test Acquired Date Facility Test Result H/L Range Note Laboratory test finding 06/21/2020 [facility] PSA - Diagnostic 3.93 ng/mL 0.00 - [...] or kits cannot be used interchangeably. Procedures Date Code Description Status 06/28/2020 41101 Admin Patient Focused Health Ris k Assessment Instrument Completed 06/28/2020 48122 Brief Emotional/Beha v Assessment W/ Scoring Doc Per Standard Inst Completed Medical Devices Description No Information Available Encounters Description No Information Available Assessments Date Code Description Provider 06/28/2020 Z00.01 Encounter for genera l adult medical examination with abnormal findings AMY Quan PNP 06/28/2020 I25.110 Atherosclerotic hear t disease of [place] coronary artery with unstable angina pectoris AMY Quan, [place] 06/28/2020 E78.00 Pure hypercholesterolemia, unspe cified AMY Quan, [place] 06/28/2020 I10 Essential (primary) hypertension AMY Quan PNP 06/28/2020 Z95.5 Presence of coronary angioplasty implant and graft AMY Quan, [place] 06/28/2020 R97.20 Elevated prostate specific antig en [PSA] AMY Quan, [place] 06/28/2020 R94.6 Abnormal results of thyroid func tion studies RENNY Quan, [place] 06/28/2020 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 Recent labs reviewed. Goal is to keep his health issues stable so he can remain active and live independently. * I25.110 Atherosclerotic heart disease of [place] coronary artery with unstable angina pectoris* Comments:* PET positive for LAD Lesion. Coronary Angioplasty 03/04/19 Stent placed LAD, Stent placed Obtuse MarginalHis recent stress echo showed new atrial fibrillation. To continue to follow up with cardiology as scheduled. * E78.00 Pure hypercholesterolemia, unspecified* Comments:* He is due for his lipids. Lab orders given. He will continue with his current regimen. He was encouraged to maintain a low cholesterol diet and a regular exercise regimen. We will continue to monitor. * Follow up:* FU 3 months, fasting labs 1 week prior * I10 Essential (primary) hypertension* Comments:* JNC8 Guidelines - Pt white Male > 60 prescribed Beta Bon, ARB. BP is at goal, 128/72. Continue current treatment and monitor. He will benefit from maintaining a low sodium diet. * Z95.5 Presence of coronary angioplasty implant and graft* Comments:* To continue to follow up with cardiology as scheduled.We will continue to monito r. * R97.20 Elevated prostate specific antigen [PSA]* Comments:* PSA at 3.93.To start Flomax 0.4 mg 1 cap PO daily.Due to pt's FH and Personal Hx Colon Cancer, pt has concerns about increasing PSA.We will [facility] to [facility] work. * Follow up:* FU 3 months, fasting labs 1 week prior * R94.6 Abnormal results of thyroid function studies* Comments:* TSH high at 8.77.To start Levothyroxine 50 mcg 1 tab PO hour before any other meds or food.We will continue to monitor through periodic blood work. 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 We will continue to monitor through periodic blood work. * Follow up:* FU in 3 months, fasting labs first. Functional Status Description No Information Available Mental Status Description No Information Available Referrals Description No Information Available
--- OUTSIDE RECORDS SUMMARY | 2020-06-29 08:54 | CCD | Continuity of Care Document ---
Author Author Michi FRANCIS Organization Unknown Address [address] [place] [address] Phone [phone] Care Team Providers Care Manager Corporate Strategy Name Role Phone Stephy Francis AUTM [phone] Suresh Almonte MD AUTM Unavailable Problems Active [...] Evening 30tabs AMY Quan , PNP 05/06/2019 Vascepa 1gm Capsules 2 by mouth twice a day 360caps Ranjbaran-Jahromi, Suresh MD 07/2018 Nitrostat 0.4mg Tablets Sub 1 tab under tongue, repeat q5 mins x2, as needed for chest pain 25tabs Suresh Almonte MD 05/07/2014 Metoprolol Succinate ER 25mg Tablets ER 24HR 1 by mouth every day 30tabs Unknown 000 Clopidogrel Bisulfate 75mg Tablets 1 by mouth every day 90tabs Unknown Losartan Potassium 25mg Tablets 1 by mouth every day 30tabs Unknown Simvastatin 40mg Tablets 1 by mouth every day Unknown Aspirin Adult Low Strength 81mg Tablets DR 1 by mouth every day Unknown Co Q-10 100mg Capsules 1 by mouth every day prn Unknown Eliquis 5mg Tablets 1 by mouth twice a day 60tabs Suresh Almonte MD Immunizations CPT Code Status Date Vaccine Lot # [id number] Given 03/21/2019 Influenza (>= 6 Months) P.F. Vaccine Vital Signs Date Vital Result Comment 06/28/2020 11:26am Body Temperature 97.2 F Respiratory Rate 18 /min Weight 240.12 lb Weight 108.921 kg Height [...] H/L Range Note Laboratory test finding 06/21/2020 [facility] PSA - Diagnostic 3.93 ng/mL [...] adult medical examination with abnormal findings AMY Quan, PNP 06/28/2020 I25.110 Atherosclerotic hear t disease of [place] coronary artery with unstable angina pectoris AMY Quan, PNP 06/28/2020 E78.00 Pure hypercholesterolemia, unspe cified AMY Quan, PNP 06/28/2020 I10 Essential (primary) hypertension AMY Quan, PNP 06/28/2020 Z95.5 Presence of coronary angioplasty implant and graft AMY Quan, PNP 06/28/2020 R97.20 Elevated prostate specific antig en [PSA] AMY Quan, PNP 06/28/2020 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
--- OUTSIDE RECORDS SUMMARY | 2020-06-29 08:54 | CCD | Continuity of Care Document ---
Author Author Michi [facility] Organization Unknown Address [address] [place] [address] Phone [phone] Care Team Providers Care Neurosurgical Nurse Practitioner Name Role Phone Stephy Langford AUTM [phone] Primitivo Hyde M.D. AUTM [phone] Problems Active Problems Provider Date History of malignant neoplasm of rectum Gerber Zelaya MD Onset: 06/05/2012 Pure hypercholesterolemia Gerber Zelaya MD Onset: 05/18 Disorder of external ear Isaiah Pope MD Onset: 05/01/20 13 Chronic rhinitis Isaiah Pope MD Onset: 05/01/2013 Hearing loss Isaiah Pope MD Onset: 05/01/2013 Intestinal Bypass Or Anastomosis Postsurgical Gerber harry MD Onset: 05/01/2013 Malignant melanoma of scalp and/or neck Gerber Zelaya MD Onset: 05/01/2013 Hernia of anterior abdominal wall Gerber Zelaya MD Ons et: 05/01/2013 Benign neoplasm of colon Gerber Zelaya MD Onset: 05/01 Malignant tumor of colon Gerber Zelaya MD Onset: 05/01 Social History Type Date Description Comments Sex Unknown Tobacco Use Start: Unknown End: Unknown Quit ETOH Use Never used alcohol Tobacco Use Start: Unknown Non Smoker Recreational Drug Use Denies Drug Use Allergies, Adverse Reactions, Alerts Active Allergies Reaction Severity Comments Date NKDA 06/03/2020 Inactive Allergies NKDA 06/21/2009 Flomax Back Pain 06/25/2019 Medications Active Medications SIG Qnty Indications Ordering Provide r Date Simvastatin 20mg Tablets 1 PO Daily Unknown Metoprolol 25mg 1 PO Daily Unknown Losartan Potassium 25mg Tablets 1 po daily Unknown Vascepa 1gm Capsules 2gm po b id Unknown Eliquis 5mg Tablets 1 tab by mouth twice a day Unknown Aspirin [address] one tab by mouth once a day Unknown History Medications Suprep Bowel Prep Kit 17.5-3.13-1.6GM/177ML Solution as directed by physician 1Kit Richard Moore NP 02/02/2020 - 06/03/2020 Immunizations Description No Information Available Vital Signs Date Vital Result Comment 06/03/2020 9:59am BP Systolic 124 mmHg BP Diastolic 66 mmHg Height 69 inches 5'9" Weight 239.12 lb BMI (Body Mass Index) 35.3 kg/m2 [place] Body Weight 160 lb Weight 108.467 kg BSA (Body Surface Area) 2.23 m2 01/27/2020 4:41pm BP Systolic 170 mmHg BP Diastolic 84 mmHg Height 69 inches 5'9" Weight 259.38 lb BMI (Body Mass Index) 38.3 kg/m2 [place] Body Weight 160 lb Weight 117.653 kg BSA (Body Surface Area) 2.31 m2 Results Description No Information Available Procedures Description No Information Available Medical Devices Description No Information Available Encounters Description No Information Available Assessments Date Code Description Provider 01/27/2020 Z85.038 Personal history of other malignant neoplasm of large intestine Richard Moore NP 01/27/2020 Z12.11 Encounter for screening for silvino gnant neoplasm of colon Richard Moore NP Plan of Treatment 01/27/2020 - Richard Moore NP* Z85.038 Personal history of other malignant neoplasm of large intestine* Comments:* Patient has had a personal history of colonic cancer and at this point the recommendation is to proceed with a repeat colonoscopy risks as well as benefits have been discussed with him at length those including but not limited to bleeding infection damage to bowel including perforation and possibly anesthetic complications. Patient understands as well that small lesions/polyps can be missed with increased frequency and is much dependent on colonic prep. The patient agrees to proceed with colonoscopy as recommended. Recent cardiac stents x 4 02/2019, will contact Dr. Beltre to inquire if patient is able to hold Plavix x 7 days. * Z12.11 Encounter for screening for malignant neoplasm of colon Functional Status Description No Information Available Mental Status Description No Information Available Referrals Description No Information Available
--- OUTSIDE RECORDS SUMMARY | 2020-06-29 08:55 | CCD ---
Author Author [facility] Organization [facility] Address Unknown Phone Unavailable Care Team Providers Care Case Work Aide Name Role Phone [place], Minh Jane MD Unavailable Unavailable [place], Minh Jane MD Unavailable Unavailable [place], Minh Jane MD Unavailable Unavailable [place], Minh Jane MD Unavailable Unavailable [place], Minh Jane MD Unavailable Unavailable [place], Minh Jane MD Unavailable Unavailable [place], Minh Jane MD Unavailable Unavailable [place], Minh Jane MD Unavailable Unavailable [place], Minh Jane MD Unavailable Unavailable [place], Minh Jane MD Unavailable Unavailable [place], Minh Jane MD Unavailable Unavailable [place], Minh Jane MD Unavailable Unavailable [place], Minh Jane MD Unavailable Unavailable [place], Minh Jane MD Unavailable Unavailable [place], Minh Jane MD Unavailable Unavailable [place], Minh Jane MD Unavailable Unavailable [place], Minh Jane MD Unavailable Unavailable [place], Minh Jane MD Unavailable Unavailable [place], Minh Jane MD Unavailable Unavailable [place], Minh Jane MD Unavailable Unavailable [place], Minh Jane MD Unavailable Unavailable [place], Minh Jane MD Unavailable Unavailable [place], Minh Jane MD Unavailable Unavailable [place], Minh Jane MD Unavailable Unavailable [place], Minh Jane MD Unavailable Unavailable [place], Minh Jane MD Unavailable Unavailable [place], Minh Jane MD Unavailable Unavailable [place], Minh Jane MD Unavailable Unavailable [place], Minh Jane MD Unavailable Unavailable [place], Minh Jane MD Unavailable Unavailable [place], Minh Jane MD Unavailable Unavailable [place], Minh Jane MD Unavailable Unavailable [place], Minh Jane MD Unavailable Unavailable [place], Minh Jane MD Unavailable Unavailable [place], Minh Jane MD Unavailable Unavailable [place], A Buck MD Unavailable Unavailable [place], A Buck FELICIANO Unavailable Unavailable [place], A Buck MD Unavailable Unavailable [place], A Buck MD Unavailable Unavailable [place], A Buck MD Unavailable Unavailable [place], A Buck MD Unavailable Unavailable [place], A Buck MD Unavailable Unavailable [place], A Buck MD Unavailable Unavailable [place], A Buck MD Unavailable Unavailable [place], A Buck MD Unavailable Unavailable [place], A Buck MD Unavailable Unavailable [place], A Buck MD Unavailable Unavailable [place], A Buck MD Unavailable Unavailable [place], A Buck MD Unavailable Unavailable [place], A Buck MD Unavailable Unavailable [place], A Buck MD Unavailable Unavailable [place], A Buck MD Unavailable Unavailable [place], A Buck MD Unavailable Unavailable [place], A Buck MD Unavailable Unavailable [place], A Buck MD Unavailable Unavailable [place], A Buck MD Unavailable Unavailable [place], A Buck MD Unavailable Unavailable [place], A Buck MD Unavailable Unavailable [place], A Buck MD Unavailable Unavailable [place], A Buck FELICIANO Unavailable Unavailable [place], A Buck FELICIANO Unavailable Unavailable [place], A Buck FELICIANO Unavailable Unavailable [place], A Buck MD Unavailable Unavailable [place], A Buck MD Unavailable Unavailable [place], A Buck MD Unavailable Unavailable [place], A Buck MD Unavailable Unavailable [place], A Buck FELICIANO Unavailable Unavailable [place], A Buck FELICIANO Unavailable Unavailable [place], A Buck FELICIANO Unavailable Unavailable [place], A Buck MD Unavailable Unavailable [place], A Buck MD Unavailable Unavailable [place], A Buck MD Unavailable Unavailable [place], A Buck FELICIANO Unavailable Unavailable [place], A Buck FELICIANO Unavailable Unavailable Heitner, Maikel Bonilla MD Unavailable Unavailable Heitner, Maikel Bonilla MD Unavailable Unavailable Heitner, Maikel Bonilla MD Unavailable Unavailable Heitner, Maikel Bonilla MD Unavailable Unavailable Heitner, Maikel Bonilla MD Unavailable Unavailable Heitner, Maikel Bonilla MD Unavailable Unavailable Heitner, Maikel Bonilla MD Unavailable Unavailable Heitner, Maikel Bonilla MD Unavailable Unavailable Heitner, Maikel Bonilla MD Unavailable Unavailable Heitner, Maikel Bonilla MD Unavailable Unavailable Heitner, Maikel Bonilla MD Unavailable Unavailable Heitner, Maikel Bonilla MD Unavailable Unavailable Heitner, Maikel Bonilla MD Unavailable Unavailable Heitner, Maikel Bonilla MD Unavailable Unavailable Heitner, Maikel Bonilla MD Unavailable Unavailable Heitner, Maikel Bonilla MD Unavailable Unavailable Heitaxel, Maikel Bonilla MD Unavailable Unavailable Dilip, Maikel Bonilla MD Unavailable Unavailable Dilip, Maikel Bonilla MD Unavailable Unavailable Dilip, Maikel Bonilla MD Unavailable Unavailable Dilip, Maikel Bonilla MD Unavailable Unavailable Dilip, Maikel Bonilla MD Unavailable Unavailable Dilip, Maikel Bonilla MD Unavailable Unavailable Dilip, Maikel Bonilla MD Unavailable Unavailable Dilip, Maikel Bonlila MD Unavailable Unavailable Ranjenn-Jahromi Sureshkeena FELICIANO Unavailable Unavailabl e Ranefrenbareda-Jahromi Sureshkeena FELICIANO Unavailable Unavailabl e Ranefrenbareda-Jahromi Sureshkeena FELICIANO Unavailable Unavailabl e Felicianobareda-Jahromi Sureshkeena FELICIANO Unavailable Unavailabl e Ila-Davidhromi Sureshkeena FELICIANO Unavailable Unavailabl e Felicianobareda-Jahromi Sureshkeena FELICIANO Unavailable Unavailabl e Felicianobareda-Jahromi Sureshkeena FEILCIANO Unavailable Unavailabl e Ila-Jahromi Sureshkeena FELICIANO Unavailable Unavailabl e Felicianobareda-Jahromi Sureshkeena FELICIANO Unavailable Unavailabl e Felicianobareda-Jahromi Sureshkeena FELICIANO Unavailable Unavailabl e Ila-Davidhromi Sureshkeena FELICIANO Unavailable Unavailabl e Ila-DavidhromiSuresh MD Unavailable Unavailabl e Ila-Davidhromi Sureshkeena FELICIANO Unavailable Unavailabl e Ila-LuisomiSuresh MD Unavailable Unavailabl e Ila-LuisomiSuresh MD Unavailable Unavailabl e Ila-Davidhromi Sureshkeena FELICIANO Unavailable Unavailabl e Felicianobareda-Jahromi Sureshkeena FELICIANO Unavailable Unavailabl e Ila-Jahromi Sureshkeena FELICIANO Unavailable Unavailabl e Ila-Davidhromi Sureshkeena FELICIANO Unavailable Unavailabl e Ila-Davidhromi Sureshkeena FELICIANO Unavailable Unavailabl e Ila-Jahromi Sureshkeena FELICIANO Unavailable Unavailabl e Ila-Jahromi Sureshkeena FELICIANO Unavailable Unavailabl e Ila-Davidhromi Sureshkeena FELICIANO Unavailable Unavailabl e Ila-Davidhromi Sureshkeena FELICIANO Unavailable Unavailabl e Ranefrenbaran-Jahromi, Suresh MD Unavailable Unavailabl e Felicianobaran-Jahromi Suresh Unavailable Unavailabl e Felicianobareda-Jahromi Sureshkeena FELICIANO Unavailable Unavailabl e Felicianobaran-Jahromi Suresh MD Unavailable Unavailabl e Felicianobaran-Jahromi Suresh MD Unavailable Unavailabl e Felicianobareda-Jahromi Suresh Unavailable Unavailabl e Felicianobaran-Jahromi Suresh MD Unavailable Unavailabl e Felicianobaran-Jahromi Suresh MD Unavailable Unavailabl e Felicianobaran-Jahromi Suresh MD Unavailable Unavailabl e Felicianobaran-Jahromi Suresh Unavailable Unavailabl e Felicianobaran-Jahromi Suresh MD Unavailable Unavailabl e Felicianobaran-Jahromi Suresh Unavailable Unavailabl e Ila-Davidhromi Sureshkeena FELICIANO Unavailable Unavailabl e Ila-Davidhromi Sureshkeena FELICIANO Unavailable Unavailabl e Ila-Jahromi Suresh MD Unavailable Unavailabl e Ila-Jahromi Suresh Unavailable Unavailabl e Ila-Davidhromi Sureshkeena FELICIANO Unavailable Unavailabl e Ila-Davidhromi Sureshkeena FELICIANO Unavailable Unavailabl e Ila-Davidhromi Sureshkeena FELICIANO Unavailable Unavailabl e Ila-Davidhromi Sureshkeena FELICIANO Unavailable Unavailabl e Ila-Davidhromi Sureshkeena FELICIANO Unavailable Unavailabl e Ila-Jahromi Suresh MD Unavailable Unavailabl e Felicianobaran-Jahromi Suresh MD Unavailable Unavailabl e Ila-Davidhromi Suresh Unavailable Unavailabl e Ila-Davidhromi Sureshkeena FELICIANO Unavailable Unavailabl e Ila-Davidhromi Sureshkeena FELICIANO Unavailable Unavailabl e Ila-Jahromi Sureshkeena FELICIANO Unavailable Unavailabl e Ila-Jahromi Sureshkeena FELICIANO Unavailable Unavailabl e Ila-Davidhromi Sureshkeena FELICIANO Unavailable Unavailabl e Ila-Jahromi, Suresh MD Unavailable Unavailabl e Ranjbaran-Jahromi, Suresh MD Unavailable Unavailabl e Ranjbaran-Jahromi, Suresh MD Unavailable Unavailabl e Ranjbaran-Jahromi, Suresh MD Unavailable Unavailabl e Ranjbaran-Jahromi, Suresh MD Unavailable Unavailabl e Ranjbaran-Jahromi, Suresh MD Unavailable Unavailabl e Ranjbaran-Jahromi, Suresh MD Unavailable Unavailabl e Ranjbaran-Jahromi, Suresh MD Unavailable Unavailabl e Ranjbaran-Jahromi, Suresh MD Unavailable Unavailabl e Felicianobaran-Jahromi, Suresh MD Unavailable Unavailabl e Felicianobaran-Jahromi, Suresh MD Unavailable Unavailabl e Ranjbaran-Jahromi, Suresh MD Unavailable Unavailabl e Felicianobaran-Jahromi, Suresh MD Unavailable Unavailabl e Felicianobaran-Jahromi, Suresh MD Unavailable Unavailabl e Felicianobaran-Jahromi, Suresh MD Unavailable Unavailabl e Irvinjbaran-Jahromi, Suresh MD Unavailable Unavailabl e Felicianobareda-Jahromi, Suresh MD Unavailable Unavailabl e Ila-Davidhromi Suresh MD Unavailable Unavailabl e Felicianobaran-Jahromi, Suresh MD Unavailable Unavailabl e Felicianobaran-Jahromi, Suresh MD Unavailable Unavailabl e Felicianobaran-Jahromi Suresh MD Unavailable Unavailabl e Felicianobaran-Jahromi, Suresh MD Unavailable Unavailabl e Ranjbaran-Jahromi, Suresh MD Unavailable Unavailabl e Felicianobaran-Jahromi, Suresh MD Unavailable Unavailabl e Felicianobaran-Jahromi, Suresh MD Unavailable Unavailabl e Felicianobareda-Davidhromi Suresh MD Unavailable Unavailabl e Felicianobaran-Jahromi, Suresh MD Unavailable Unavailabl e Felicianobaran-Jahromi, Suresh MD Unavailable Unavailabl e Pallavian-Jahromi Suresh MD Unavailable Unavailabl e Felicianobaran-Davidhromi Suresh MD Unavailable Unavailabl e Ranjbaran-Jahromi, Suresh MD Unavailable Unavailabl e Felicianobaran-Jahromi Suresh MD Unavailable Unavailabl e Ranjbaran-Jahromi Suresh MD Unavailable Unavailabl e Ranjbaran-Jahromi, Suresh MD Unavailable Unavailabl e Ranjbaran-Jahromi Suresh MD Unavailable Unavailabl e Ranefrenbaran-Jahromi Suresh MD Unavailable Unavailabl e Ranjbaran-Jahromi Suresh MD Unavailable Unavailabl e Ranjbaran-Jahromi Suresh MD Unavailable Unavailabl e Ranjbaran-Jahromi Suresh MD Unavailable Unavailabl e Irvinjbaran-Jahromi Suresh MD Unavailable Unavailabl e Ranjbaran-Jahromi Suresh MD Unavailable Unavailabl e Ranefrenbaran-Jahromi Suresh MD Unavailable Unavailabl e Felicianobaran-Jahromi Suresh MD Unavailable Unavailabl e Felicianobaran-Jahromi Suresh MD Unavailable Unavailabl e Ranjbaran-Jahromi Suresh MD Unavailable Unavailabl e Felicianobaran-Jahromi Suresh MD Unavailable Unavailabl e Pallavian-Jahromi Sureshkeena FELICIANO Unavailable Unavailabl e Felicianobaran-Jahromi Suresh MD Unavailable Unavailabl e Felicianobaran-Jahromi Suresh MD Unavailable Unavailabl e Ila-Jahromi Suresh MD Unavailable Unavailabl e Pallavian-Jahromi Sureshkeena FELICIANO Unavailable Unavailabl e Ranefrenbaran-Jahromi Suresh MD Unavailable Unavailabl e Ranefrenbaran-Jahromi Suresh MD Unavailable Unavailabl e Felicianobaran-Jahromi Suresh MD Unavailable Unavailabl e Pallavian-Jahromi Sureshkeena FELICIANO Unavailable Unavailabl e Felicianobaran-Jahromi Suresh MD Unavailable Unavailabl e Ranefrenbaran-Jahromi Sureshkeena FELICIANO Unavailable Unavailabl e Felicianobaran-Jahromi Sureshkeena FELICIANO Unavailable Unavailabl e Pallavian-Jahromi Sureshkeena FELICIANO Unavailable Unavailabl e Ranjbaran-Jahromi, Suresh MD Unavailable Unavailabl e Ranjbaran-Jahromi, Suresh MD Unavailable Unavailabl e Felicianobaran-Jahromi, Suresh MD Unavailable Unavailabl e Ranjbaran-Jahromi, Suresh MD Unavailable Unavailabl e Ranefrenbaran-Jahromi, Suresh MD Unavailable Unavailabl e Felicianobaran-Jahromi Suresh MD Unavailable Unavailabl e Felicianobaran-Jahromi Suresh MD Unavailable Unavailabl e Ranjbaran-Jahromi Suresh MD Unavailable Unavailabl e Ranjbaran-Jahromi, Suresh MD Unavailable Unavailabl e Irvinjbaran-Jahromi, Suresh MD Unavailable Unavailabl e Felicianobaran-Jahromi Suresh MD Unavailable Unavailabl e Felicianobaran-Jahromi Suresh MD Unavailable Unavailabl e Felicianobaran-Jahromi Suresh MD Unavailable Unavailabl e Felicianobaran-Jahromi Suresh MD Unavailable Unavailabl e Felicianobaran-Jahromi Suresh MD Unavailable Unavailabl e Felicianobaran-Jahromi Suresh MD Unavailable Unavailabl e Ila-Jahromi Suresh MD Unavailable Unavailabl e Ila-Davidhromi Suresh MD Unavailable Unavailabl e Ila-Jahromi Suresh MD Unavailable Unavailabl e Ila-Jahromi Suresh MD Unavailable Unavailabl e Ila-Jahromi Sureshkeena FELICIANO Unavailable Unavailabl e Ila-Jahromi Suresh MD Unavailable Unavailabl e Felicianobaran-Jahromi Suresh MD Unavailable Unavailabl e Felicianobaran-Jahromi Suresh MD Unavailable Unavailabl e Pallavian-Jahromi Suresh Unavailable Unavailabl e Ila-Davidhromi Suresh MD Unavailable Unavailabl e Pallavian-Jahromi Suresh MD Unavailable Unavailabl e Felicianobaran-Jahromi Suresh Unavailable Unavailabl e Ila-Davidhromi Sureshkeena FELICIANO Unavailable Unavailabl e Ila-Luisomi, Suresh MD Unavailable Unavailabl e Ranjbaran-Jahromi, Suresh MD Unavailable Unavailabl e Ranefrenbaran-Jahromi, Suresh MD Unavailable Unavailabl e Ranefrenbaran-Jahromi, Suresh MD Unavailable Unavailabl e Ranjbaran-Jahromi, Suresh MD Unavailable Unavailabl e Ranjbaran-Jahromi, Suresh MD Unavailable Unavailabl e Ranjbaran-Jahromi, Suresh MD Unavailable Unavailabl e Ranjbaran-Jahromi Suresh MD Unavailable Unavailabl e Ranjbaran-Jahromi Suresh MD Unavailable Unavailabl e Felicianobaran-Jahromi Suresh MD Unavailable Unavailabl e Felicianobaran-Jahromi Suresh MD Unavailable Unavailabl e Ranjbaran-Jahromi Suresh MD Unavailable Unavailabl e Ranefrenbaran-Jahromi Suresh MD Unavailable Unavailabl e Felicianobaran-Jahromi Suresh MD Unavailable Unavailabl e Felicianobaran-Jahromi Suresh MD Unavailable Unavailabl e Felicianobaran-Jahromi Suresh MD Unavailable Unavailabl e Pallavian-Jahromi Suresh MD Unavailable Unavailabl e Pallavian-Jahromi Sureshkeena FELICIANO Unavailable Unavailabl e Felicianobaran-Jahromi Suresh MD Unavailable Unavailabl e Felicianobaran-Jahromi Suresh Unavailable Unavailabl e Ila-Davidhromi Sureshkeena FELICIANO Unavailable Unavailabl e Pallavian-Davidhromi Sureshkeena FELICIANO Unavailable Unavailabl e Ranefrenbaran-Jahromi Suresh MD Unavailable Unavailabl e Felicianobaran-Jahromi Suresh MD Unavailable Unavailabl e Pallavian-Jahromi Suresh MD Unavailable Unavailabl e Pallavian-Jahromi Sureshkeena FELICIANO Unavailable Unavailabl e Felicianobaran-Jahromi Suresh MD Unavailable Unavailabl e Felicianobaran-Jahromi Suresh Unavailable Unavailabl e Ila-Jahromi Sureshkeena FELICIANO Unavailable Unavailabl e Pallavian-Davidhromi Suresh MD Unavailable Unavailabl e Ranjbaran-Jahromi, Suresh MD Unavailable Unavailabl e Primitivo, Jess Stephy ANP-BC Unavailable Unavailable Primitivo, Jess Stephy ANP-BC Unavailable Unavailable Primitivo, Jess Stephy ANP-BC Unavailable Unavailable Primitivo, Jess Stephy ANP-BC Unavailable Unavailable Pirmitivo, Jess Stephy ANP-BC Unavailable Unavailable Primitivo, Jess Stephy ANP-BC Unavailable Unavailable Primitivo, Jess Stephy ANP-BC Unavailable Unavailable Primitivo, Jess Stephy ANP-BC Unavailable Unavailable Primitivo, Jess Stephy ANP-BC Unavailable Unavailable Primitivo, Jess Stephy ANP-BC Unavailable Unavailable Primitivo, Jess Stephy ANP-BC Unavailable Unavailable Primitivo, Jess Stephy ANP-BC Unavailable Unavailable Primitivo, Jess Stephy ANP-BC Unavailable Unavailable Primitivo, Jess Stephy ANP-BC Unavailable Unavailable Primitivo, Jess Stephy ANP-BC Unavailable Unavailable Primitivo, Jess Stephy ANP-BC Unavailable Unavailable Primitivo, Jess Stepyh ANP-BC Unavailable Unavailable Primitivo, Jess Stephy ANP-BC Unavailable Unavailable Primitivo, Jess Stephy ANP-BC Unavailable Unavailable Primitivo, Jess Stephy ANP-BC Unavailable Unavailable Primitivo, Jess Stephy ANP-BC Unavailable Unavailable Primitivo, Jess Stephy ANP-BC Unavailable Unavailable Primitivo, Jess Stephy ANP-BC Unavailable Unavailable Primitivo, Jess Stephy ANP-BC Unavailable Unavailable Primitivo, Jess Stephy ANP-BC Unavailable Unavailable Primitivo, Jess Stephy ANP-BC Unavailable Unavailable Primitivo, Jess Tsephy ANP-BC Unavailable Unavailable Primitivo, Jess Stephy ANP-BC Unavailable Unavailable Primitivo, Jess Stephy ANP-BC Unavailable Unavailable Primitivo, Jess Stephy ANP-BC Unavailable Unavailable Primitivo, Jess Stephy ANP-BC Unavailable Unavailable Primitivo, Jess Stephy ANP-BC Unavailable Unavailable Primitivo, Jess Stephy ANP-BC Unavailable Unavailable Primitivo, Jess Stephy ANP-BC Unavailable Unavailable Primitivo, Jess Stephy ANP-BC Unavailable Unavailable Primitivo, Jess Stephy ANP-BC Unavailable Unavailable Primitivo, Jess Stephy ANP-BC Unavailable Unavailable Primitivo, Jess Stephy ANP-BC Unavailable Unavailable Primitivo, Jess Stephy ANP-BC Unavailable Unavailable Primitivo, Jess Stephy ANP-BC Unavailable Unavailable Primitivo, Jess Stephy ANP-BC Unavailable Unavailable Primitivo, Jess Stephy ANP-BC Unavailable Unavailable Primitivo, Jess Stephy ANP-BC Unavailable Unavailable Primitivo, Jess Stephy ANP-BC Unavailable Unavailable Primitivo, Jess Stephy ANP-BC Unavailable Unavailable Primitivo, Jess Stephy ANP-BC Unavailable Unavailable Primitivo, Jess Stephy ANP-BC Unavailable Unavailable Primitivo, Jess Stephy ANP-BC Unavailable Unavailable Primitivo, Jess Stephy ANP-BC Unavailable Unavailable Primitivo, Jess Stephy ANP-BC Unavailable Unavailable Primitivo, Jess Stephy ANP-BC Unavailable Unavailable Primitivo, Jess Stephy ANP-BC Unavailable Unavailable Primitivo, Jess Stephy ANP-BC Unavailable Unavailable Primitivo, Jess Stephy ANP-BC Unavailable Unavailable Primitivo, Jess Stephy ANP-BC Unavailable Unavailable Primitivo, Jess Stephy ANP-BC Unavailable Unavailable Primitivo, Jess Stephy ANP-BC Unavailable Unavailable Primitivo, Jess Stephy ANP-BC Unavailable Unavailable Primitivo, Jess Stephy ANP-BC Unavailable Unavailable Primitivo, Jess Stephy ANP-BC Unavailable Unavailable Primitivo, Jess Stephy ANP-BC Unavailable Unavailable Primitivo, Jess Stephy ANP-BC Unavailable Unavailable Primitivo, Jess Stephy ANP-BC Unavailable Unavailable Primitivo, Jess Stephy ANP-BC Unavailable Unavailable Primitivo, Jess Stephy ANP-BC Unavailable Unavailable Primitivo, Jess Stephy ANP-BC Unavailable Unavailable Primitivo, Jess Stephy ANP-BC Unavailable Unavailable Primitivo, Jess Stephy ANP-BC Unavailable Unavailable Primitivo, Jess Stephy ANP-BC Unavailable Unavailable Primitivo, Jess Stephy ANP-BC Unavailable Unavailable Primitivo, Jess Stephy ANP-BC Unavailable Unavailable Primitivo, Jess Stephy ANP-BC Unavailable Unavailable Primitivo, Jess Stephy ANP-BC Unavailable Unavailable Primitivo, Jess Stephy ANP-BC Unavailable Unavailable Primitivo, Jess Stephy ANP-BC Unavailable Unavailable Primitivo, Jess Stephy ANP-BC Unavailable Unavailable Primitivo, Jess Stephy ANP-BC Unavailable Unavailable Primitivo, Jess Stephy ANP-BC Unavailable Unavailable Primitivo, Jess Stephy ANP-BC Unavailable Unavailable Primitivo, Jess Stephy ANP-BC Unavailable Unavailable Primitivo, Jess Stephy ANP-BC Unavailable Unavailable Primitivo, Jess Stephy ANP-BC Unavailable Unavailable Primitivo, Jess Stephy ANP-BC Unavailable Unavailable Primitivo, Jess Stephy ANP-BC Unavailable Unavailable Primitivo, Jess Stephy ANP-BC Unavailable Unavailable Primitivo, Jess Stephy ANP-BC Unavailable Unavailable Primitivo, Jess Stephy ANP-BC Unavailable Unavailable Primitivo, Jess Stephy ANP-BC Unavailable Unavailable Primitivo, Jess Stephy ANP-BC Unavailable Unavailable Primitivo, Jess Stephy ANP-BC Unavailable Unavailable Primitivo, Jess Stephy ANP-BC Unavailable Unavailable Primitivo, Jess Stephy ANP-BC Unavailable Unavailable Primitivo, Jess Tsephy ANP-BC Unavailable Unavailable Primitivo, Jess Stephy ANP-BC Unavailable Unavailable Primitivo, Jess Stephy ANP-BC Unavailable Unavailable Primitivo, Jess Stephy ANP-BC Unavailable Unavailable Primitivo, Jess Stephy ANP-BC Unavailable Unavailable Primitivo, Jess Stephy ANP-BC Unavailable Unavailable Primitivo, Jess Stephy ANP-BC Unavailable Unavailable Primitivo, Jess Stephy ANP-BC Unavailable Unavailable Primitivo, Jess Stephy ANP-BC Unavailable Unavailable Primitivo, Jess Stephy ANP-BC Unavailable Unavailable Primitivo, Jess Stephy ANP-BC Unavailable Unavailable Primitivo, Jess Stephy ANP-BC Unavailable Unavailable Primitivo, Jess Stephy ANP-BC Unavailable Unavailable Primitivo, Jess Stephy ANP-BC Unavailable Unavailable Primitivo, Jess Stephy ANP-BC Unavailable Unavailable Primitivo, Jess Stephy ANP-BC Unavailable Unavailable Primitivo, Jess Stephy ANP-BC Unavailable Unavailable Primitivo, Jess Stephy ANP-BC Unavailable Unavailable Primitivo, Jess Stephy ANP-BC Unavailable Unavailable Pirmitivo, Jess Stephy ANP-BC Unavailable Unavailable Primitivo, Jess Stephy ANP-BC Unavailable Unavailable Primitivo, Jess Stephy ANP-BC Unavailable Unavailable Primitivo, Jess Stephy ANP-BC Unavailable Unavailable Primitivo, Jess Stephy ANP-BC Unavailable Unavailable Primitivo, Jess Stephy ANP-BC Unavailable Unavailable Primitivo, Jess Stephy ANP-BC Unavailable Unavailable Primitivo, Jess Stephy ANP-BC Unavailable Unavailable Primitivo, Jess Stephy ANP-BC Unavailable Unavailable Primitivo, Jess Stephy ANP-BC Unavailable Unavailable Primitivo, Jess Stephy ANP-BC Unavailable Unavailable Primitivo, Jess Stephy ANP-BC Unavailable Unavailable Primitivo, Jess Stephy ANP-BC Unavailable Unavailable Primitivo, Jess Stephy ANP-BC Unavailable Unavailable Primitivo, Jess Keyes ANP-BC Unavailable Unavailable Primitivo, Jess Keyes ANP-BC Unavailable Unavailable Primitivo, Jess Keyes ANP-BC Unavailable Unavailable NOT, SPECIFIED Unavailable Unavailable LETTIERE, A LORNA PA Unavailable Unavailable LETTIERE, A LORNA PA Unavailable Unavailable LETTIERE, A LORNA PA Unavailable Unavailable LETTIERE, A LORNA PA Unavailable Unavailable LETTIERE, A LORNA PA Unavailable Unavailable LETTIERE, A LORNA PA Unavailable Unavailable LETTIERE, A LORNA PA Unavailable Unavailable LETTIERE, A LORNA PA Unavailable Unavailable LETTIERE, A LORNA PA Unavailable Unavailable LETTIERE, A LORNA PA Unavailable Unavailable LETTIERE, A LORNA PA Unavailable Unavailable LETTIERE, A LORNA PA Unavailable Unavailable LETTIERE, A LORNA PA Unavailable Unavailable LETTIERE, A LORNA PA Unavailable Unavailable LETTIERE, A LORNA PA Unavailable Unavailable LETTIERE, A LORNA PA Unavailable Unavailable LETTIERE, A LORNA PA Unavailable Unavailable LETTIERE, A LORNA PA Unavailable Unavailable LETTIERE, A LORNA PA Unavailable Unavailable LETTIERE, A LORNA PA Unavailable Unavailable LETTIERE, A LORNA PA Unavailable Unavailable LETTIERE, A LORNA PA Unavailable Unavailable LETTIERE, A LORNA PA Unavailable Unavailable LETTIERE, A LORNA PA Unavailable Unavailable LETTIERE, A LORNA PA Unavailable Unavailable LETTIERE, A LORNA PA Unavailable Unavailable LETTIERE, A LORNA PA Unavailable Unavailable LETTIERE, A LORNA PA Unavailable Unavailable LETTIERE, A LORNA PA Unavailable Unavailable Re-disclosure Warning The records that you are about to access may contain information from federally-assisted alcohol or drug abuse programs. If such information is present, then the following federally mandated warning applies: This information has been disclosed to you from records protected by federal confidentiality rules (42 CFR part 2). The federal rules prohibit you from making any further disclosure of this information unless further disclosure is expressly permitted by the written consent of the person to whom it pertains or as otherwise permitted by 42 CFR part 2. A general authorization for the release of medical or other information is NOT sufficient for this purpose. The Federal rules restrict any use of the information to criminally investigate or prosecute any alcohol or drug abuse patient.The records that you are about to access may contain highly sensitive health information, the redisclosure of which is protected by Article 27-F of the [facility] Public Health law. If you continue you may have access to information: Regarding HIV / AIDS; Provided by facilities licensed or operated by the [facility] Office of Mental Health; or Provided by the [facility] Office for People With Developmental Disabilities. If such information is present, then the following [facility] mandated warning applies: This information has been disclosed to you from confidential records which are protected by state law. State law prohibits you from making any further disclosure of this information without the specific written consent of the person to whom it pertains, or as otherwise permitted by law. Any unauthorized further disclosure in violation of state law may result in a fine or intermediate sentence or both. A general authorization for the release of medical or other information is NOT sufficient authorization for further disc losure. Allergies and Adverse Reactions Type Description Substance Reaction Status Data Source(s ) No Known Allergies No Known Allergies [facility] Drug Allergy NKDA NKDA MEDENT ([facility]) Drug Allergy NKDA NKDA MEDENT ([facility]) Drug Allergy Drug Allergy NKDA [facility] ([facility]) Adverse Reaction Adverse Reaction Flomax ME DENT ([facility], ) Back Pain Family History Family Member Name Family Member Gender Family Member Status Date o f Status Description Data Source(s) Unknown Unknown Problem [facility]ENT ([facility]) Unknown Male Problem MED[facility] ([facility] ) Unknown Female Problem [facility]ENT ([facility]) Encounters Encounter Providers Location Date Indications Data Source(s ) Outpatient Attender: Stephy LAWSONBCConsultant: SPECIFIED NOT 06/28/2020 11:24:00 AM EST - 06/28/2020 11:24:00 AM [facility] Outpatient Attender: Suresh porras MDReferrer: Suresh Beltre MDConsultant: SPECIFIED NOT 06/22/2020 04:01:0 0 PM EST - 06/22/2020 04:11:00 PM [facility] Outpatient Attender: Stephy LAWSONBCConsultant: SPECIFIED NOT 06/22/2020 10:18:00 AM EST - 06/22/2020 10:18:00 AM [facility] Outpatient Attender: Suresh Almonte MDConsultant: SPECIFIED NOT 06/21/2020 05:11:00 PM [facility] - 06/21/2020 05:21:00 PM [facility]patient [facility] SPECIFIED NOT 06/21/2020 08:36:00 AM [facility] - 06/21/2020 08:36:00 AM [facility] Outpatient Attender: Suresh Almonte MD [facility] 05/30/2020 10:45:00 AM EST MEDENT ([facility]) Outpatient Attender: Suresh Almonte MD [facility] 05/17/2020 07:15:00 AM EST MEDENT ([facility]) Outpatient Attender: Suresh Almonte MD [facility] 09/17/2019 01:00:00 PM EDT MEDENT ([facility]) Outpatient Attender: Chad Cherry MD Physical Therapy 07:30:00 AM EST MEDENT ([facility]) Outpatient Attender: LORNA avery 07/11/2019 01:45:00 PM EST [facility] ([facility]) Outpatient Attender: Buck Oleary MD 06/25/2019 12:00 :00 AM [facility] Outpatient Attender: Stephy REYES 07/2019 09:01:00 AM [facility] - 06/18/2019 09:01:00 AM [facility] Outpatient Attender: Stephy REYES Family Practice 07/2019 08:00:00 AM EST [facility] ([facility] Immunizations Vaccine Date Status Description Data Source(s) This CVX code allows reporting of a vacc ination when formulation is unknown (for example, when recording a Influenza vaccination when noted on a vaccination card) 03/17/2020 08:37:00 AM EDT completed MEDEN T ([facility]) Medications Medication Brand Name Start Date Product Form Dose Route Admi nistrative Instructions Pharmacy Instructions Status Indications Reaction Description Data Source(s) Tamsulosin hydrochloride 0.4 MG Oral Capsule [Flomax] Flomax 06/28/2020 12:00:00 AM EST ORAL active MEDENT ([facility]) Levothyroxine Sodium 0.05 MG Oral Capsule Levothyroxine Sodi um 06/28/2020 12:00:00 AM EST ORAL active M EDENT ([facility]) apixaban 5 MG Oral Tablet [Eliquis] Eliquis 05/30/2020 12:00:[address] ORAL active [facility] Suprep Bowel Prep Kit Suprep Bowel Prep Kit 02/02/2020 12:00:00 AM EDT completed MEDENT ([facility], ) 2 ML Sodium Hyaluronate 10 MG/ML Prefilled Syringe [Euflexxa ] Euflexxa 06/02/2019 12:00:00 AM EST completed MEDENT ([facility]) Doxazosin 2 MG Oral Tablet Doxazosin Mesylate 05/06/2019 12:00:[address] active MEDENT ([facility]) Tamsulosin hydrochloride 0.4 MG Oral Capsule [Flomax] Flomax 03/20/2019 12:00:00 AM EDT ORAL completed MEDENT ([facility]) Insurance Providers Payer name Policy type / Coverage type Policy ID Covered democrat ID Covered democrat's relationship to castillo Policy Castillo Plan Information R [facility] [id number] WI2 [id number] MEDICARE [id number] SP [id number] N65 MEDICARE PART A [facility] [id number] 18 [id number] [facility] MEDICARE PART A [facility] YES 18 [place] [id number] 01 [id number] MEDICARE PART A -O/P YES 18 YES MEDICARE PART A -O/P [id number] 18 [id number] MEDICARE PART A -CLINIC [id number] 18 [id number] R [facility] [id number] WI2 [id number] [facility] MEDICARE PART A [facility] [id number] 18 [id number] UMR [id number] MEDICARE [id number] UMR [id number] Spo [id number] MEDICARE [id number] Alexa [id number] [place] [id number] WI2 [id number] MEDICARE [id number] SP [id number] A MEDICARE A [id number] Self [id number] N65 UMR U [id number] Spouse [id number] [place] (pr) Medigap Part B [id number] Self [id number] Umr (pr) Medigap Part B [id number] Family Dependent [id number] Medicare Dme Supplies Medigap Part B [id number] Self [id number] [place] [id number] Self [id number] [place] (pr) Medigap Part B [id number] Self [id number] Umr (pr) Medigap Part B [id number] Family Dependent [id number] Medicare Dme Supplies Medigap Part B [id number] Self [id number] [place] Primary [id number] Self [id number] [place] (pr) Medigap Part B [id number] Self [id number] Umr (pr) Medigap Part B [id number] Family Dependent [id number] Medicare Dme Supplies Medigap Part B [id number] Self [id number] [place] Primary [id number] Self [id number] [place] (pr) Medigap Part B [id number] Self [id number] Umr (pr) Medigap Part B [id number] Family Dependent [id number] Medicare Dme Supplies Medigap Part B [id number] Self [id number] [place] Primary [id number] Self [id number] Umr Commercial [id number] Family Dependent [id number] Medicare Medicare Primary [id number] Self [id number] [place] (pr) Medigap Part B [id number] Self [id number] [place] Primary [id number] Self [id number] MEDICARE A [id number] Self [id number] A UMR U [id number] Self [id number] UMR U [id number] Self [id number] [place] U [id number] Self [id number] MEDICARE A [id number] Self [id number] A [place] (pr) Medigap Part B [id number] Self [id number] Umr (pr) Medigap Part B [id number] Family Dependent [id number] Medicare Dme Supplies Medigap Part B [id number] Self [id number] [place] Primary [id number] Self [id number] [place] (pr) Medigap Part B [id number] Self [id number] Medicare Dme Supplies Medigap Part B [id number] Self [id number] [place] Primary [id number] Self [id number] [place] Medigap Part B [id number] Family Dependent [id number] Medicare [place] [employer] Medicare Primary [id number] Self [id number] [place] (pr) Medigap Part B [id number] Self [id number] Medicare Dme Supplies Medigap Part B [id number] Self [id number] [place] Primary [id number] Self [id number] [place] (pr) Medigap Part B [id number] Self [id number] [place] Primary [id number] Self [id number] [place] (pr) Medigap Part B [id number] Self [id number] [place] Primary [id number] Self [id number] [place] (pr) Medigap Part B [id number] Self [id number] [place] Primary [id number] Self [id number] [place] (pr) Medigap Part B [id number] Self [id number] [place] Primary [id number] Self [id number] [place] Medigap Part B [id number] Family Dependent [id number] Medicare [facility] Medicare Primary Self POMCO [id number] WI2 [id number] MEDICARE -O/P [id number] 18 [id number] POMCO -O/P [id number] 01 [id number] POMCO -O/P [id number] 01 [id number] POMCO-O/P [id number] 18 [id number] A [id number] Problems, Conditions, and Diagnoses Code Display Name Description Problem Type Effective Dates Data Source(s) 708783628 Mitral leaflet abnormality Mitral leaflet abnormality Problem 05/30/2020 12:00:00 AM EST MEDENT ([facility] [id number] Paroxysmal atrial fibrillation Paroxysmal atrial fibri llation Problem 05/30/2020 12:00:00 AM EST MEDENT ([facility] E782 Mixed hyperlipidemia Mixed hyperlipidemia Diagnosis 06/22/2020 04:01:00 PM [facility] [id number] Encounter for preprocedural cardiovascul ar examination Encounter for preprocedural cardiovascular examination Diagnosis 06/22/2020 04:01:00 PM [facility] I2510 Atherosclerotic heart diseas e of [place] coronary artery without angina pectoris Atherosclerotic heart disease of [place] coronary artery without angina pectoris Diagnosis 06/22/2020 04:01:00 PM [facility] Z125 Encounter for screening for malignant ne oplasm of prostate Encounter for screening for malignant neoplasm of prostate Diagnosis 10:18:00 AM [facility] [id number] Personal history of other malignant neop lasm of large intestine Personal history of other malignant neoplasm of large intestine Diagnosis 06/18/2019 09:01:00 AM [facility] N401 Benign prostatic hyperplasia with lower urinary tract symptoms Benign prostatic hyperplasia with lower urinary tract symptoms Diagnosis 06/18/2019 09:01:00 AM [facility] E7800 Pure hypercholesterolemia, unspecified P ure hypercholesterolemia, unspecified Diagnosis 06/18/2019 09:01:00 AM [facility] Z955 Presence of coronary angioplasty implant and graft Presence of coronary angioplasty implant and graft Diagnosis 06/18/2019 09:01:00 AM [facility] [id number] 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 Diagnosis 06/18/2019 09:01:00 AM [facility] Z1211 Encounter for screening for malignant ne oplasm of colon Encounter for screening for malignant neoplasm of colon Diagnosis 06/18/2019 09:01:0 0 AM [facility] R9720 Elevated prostate specific antigen [PSA] Elevated prostate specific antigen [PSA] Diagnosis 06/18/2019 09:01:00 AM [facility] Surgeries/Procedures Procedure Description Date Indications Data Source(s) Brief Emotional/Behav Assessment W/ Scoring Doc Per Standard Inst 06/28/2020 12:00:00 AM EST MEDENT ([facility]) Admin Patient Focused Health Risk Assessment Instrument 06/28/2020 12:00:00 AM EST MEDENT ([facility]) Doppler Echocardiography Complete 05/30/2020 12:00:00 AM EST MEDENT ([facility]) Doppler Color Flow Velocity Mapping 05/30/2020 12:00:0 0 AM EST MEDENT ([facility]iac [facility]ter[facility]) Echocardiography W/ECG Includes Cont Monitoring 2019 12:00:00 AM EST MEDENT ([facility]) Electrocardiogram Complete 05/17/2020 12:00:00 AM EST MEDENT ([facility]) ARTHROCENTESIS ASPIR&/INJECTION MAJOR JT/BURSA 2 019 12:00:00 AM EST MEDENT ([facility]) ARTHROCENTESIS ASPIR&/INJECTION MAJOR JT/BURSA 019 12:00:00 AM EST MEDENT ([facility]) ARTHROCENTESIS ASPIR&/INJECTION MAJOR JT/BURSA 019 12:00:00 AM EST MEDENT ([facility]) Results ID Date Data Source [id number] 06/24/2020 11:00:00 AM EST [facility] Name Value Range Interpretation Code Description Data Mildred rce(s) Supporting Document(s) SARS coronavirus 2 RNA Not Detected [facility] This lab was ordered by [facility] and reported by [facility]. ID Date Data Source [id number] 06/22/2020 10:20:00 AM EST MEDENT ([facility]) Name Value Range Interpretation Code Description Data Mildred rce(s) Supporting Document(s) CBC W/Automated Diff Laboratory test result MEDENT ([facility]) COMPLETE BLOOD COUNT RBC 4.72 10^6/uL 4.50-6.30 MEDENT ([facility]) WBC 6.5 10^3/uL 4.2-11.0 MED[facility] ([facility] Cardia c [facility]) Hemoglobin 15.2 g/dL 14.0-16.0 MED[facility] ([facility] Ca [facility]ac [facility]) MCV 93.9 fL 80.0-94.0 [facility] ([facility]) Hematocrit 44.3 % 41.0-51.0 [facility] ([facility]) MCHC 34.3 g/dL 31.0-36.0 [facility] ([facility]) MCH 32.2 pg 27.0-34.0 MED[facility] ([facility]) Platelets 293 10^3/uL 150-450 MED[facility] ([facility]) RDW 11.6 % 11.5-14.8 MED[facility] ([facility]) Lymph 29.6 % 25.0-40.0 [facility] ([facility]) MPV 8.9 fL 7.4-10.4 MED[facility] ([facility]) Neut 58.5 % 37.0-80.0 MED[facility] ([facility]) Eos 2.3 % 0.0-7.0 MED[facility] ([facility]) Towner 8.5 % 3.0-8.0 Above high normal MEDENT ([facility]) Baso 0.6 % 0.0-2.0 MED[facility] ([facility]) #Neut 3.77 10^3/uL 2.00-6.90 MED[facility] ([facility]) %Ig 0.5 % 0.0-0.0 Above high normal MEDENT ([facility]) %NRBC 0.0 % 0.0-0.0 MED[facility] ([facility]) #[place] 0.55 10^3/uL 0.00-0.90 MED[facility] ([facility]) #Lymph 1.91 10^3/uL 0.60-3.40 [facility] ([facility]) #Baso 0.04 10^3/uL 0.00-0.20 MED[facility] ([facility]) #Eos 0.15 10^3/uL 0.00-0.70 MED[facility] ([facility]) #NRBC 0.00 10^3/uL 0.00-0.00 MED[facility] ([facility]) #Ig 0.03 10^3/uL 0.00-0.10 MED[facility] ([facility] Cardi [facility]) RBC Morph Laboratory test result ME DENT ([facility]) Manual Diff Laboratory test result Murphy CHILEL ([facility]) ID Date Data Source [id number] 06/22/2020 07:02:00 PM EST [facility] Name Value Range Interpretation Code Description Data Mildred rce(s) Supporting Document(s) CBC W/AUTOMATED DIFF [facility] COMPLETE BLOOD COUNT Leukocytes [#/volume] in Blood by Automated count 6.5 10^3/uL 4.2 - 1 1.0 [facility] Erythrocytes [#/volume] in Blood by Automated count 4.72 10^6/uL 4. 50 - 6.30 [facility] Hemoglobin [Mass/volume] in Blood 15.2 g/dL 14.0 - 16.0 [facility] Hematocrit [Volume Fraction] of Blood by Automated count 44.3 % 4 1.0 - 51.0 [facility] Erythrocyte mean corpuscular volume [Entitic volume] by Auto mated count 93.9 fL 80.0 - 94.0 [facility] Erythrocyte mean corpuscular hemoglobin [Entitic mass] by Automated count 32.2 pg 27.0 - 34.0 [facility] Erythrocyte mean corpuscular hemoglobin concentration [Mass/volume] by Automated count 34.3 g/dL 31.0 - 36.0 [facility] Erythrocyte distribution width [Ratio] by Automated count 11.6 % 11.5 - 14.8 [facility] Platelets [#/volume] in Blood by Automated count 293 10^3/uL 150 - 45 0 [facility] Platelet mean volume [Entitic volume] in Blood by Automated count 8.9 fL 7.4 - 10.4 [facility] Neutrophils/100 leukocytes in Blood by Automated count 58.5 % 37. 0 - 80.0 [facility] Lymphocytes/100 leukocytes in Blood by Manual count 29.6 % 25.0 - 40.0 [facility] Monocytes/100 leukocytes in Blood by Automated count 8.5 % 3.0 - 8.0 H [facility] Eosinophils/100 leukocytes in Blood by Automated count 2.3 % 0.0 - 7.0 [facility] Basophils/100 leukocytes in Blood by Automated count 0.6 % 0.0 - 2.0 [facility] %IG 0.5 % 0.0 - 0.0 H [facility] %NRBC 0.0 % 0.0 - 0.0 [facility] al Neutrophils [#/volume] in Blood by Automated count 3.77 10^3/uL 2.00 - 6.90 [facility] Lymphocytes [#/volume] in Blood by Automated count 1.91 10^3/uL 0.60 - 3.40 [facility] Monocytes [#/volume] in Blood by Automated count 0.55 10^3/uL 0.00 - 0.90 [facility] Eosinophils [#/volume] in Blood by Automated count 0.15 10^3/uL 0.00 - 0.70 [facility] Basophils [#/volume] in Blood by Automated count 0.04 10^3/uL 0.00 - 0.20 [facility] #IG 0.03 10^3/uL 0.00 - 0.10 [facility] #NRBC 0.00 10^3/uL 0.00 - 0.00 [facility] MANUAL DIFF NOT INDICATED [facility] RBC MORPH NOT INDICATED [facility] spital ID Date Data Source [id number] 06/21/2020 07:10:00 PM EST [facility] Name Value Range Interpretation Code Description Data Mildred rce(s) Supporting Document(s) Laboratory test finding (navigational concept) Laboratory test result MEDENT ([facility] Cardiac [facility]atheter[facility]) Specimen Integrity/Specimen Recollection The patient sample needs to be resubmitted for the following reason: Laboratory test finding (navigational concept) Laboratory test result MEDENT ([facility] Card[facility]atheter[facility]) No Spec Received { One or more of the tests you ordered cannot be performed. { Please recollect, reorder, and resubmit if needed. Laboratory test finding (navigational concept) Laboratory test result MED[facility] ([facility]) ID Date Data Source [id number] 06/21/2020 07:11:00 PM EST [facility] Name Value Range Interpretation Code Description Data Mildred rce(s) Supporting Document(s) LAB - SPECIMEN REJECTION [facility] Specimen Integrity/Specimen Recollection The patient sample needs to be resubmitted for the following reason: Test(s) Ordered CBCW/DIFF [facility] Rejection Reason No Spec Received [facility] { One or more of the tests you ordered cannot be performed.{ Please recollect, reorder, and resubmit if needed. ID Date Data Source [id number] 06/21/2020 10:06:00 AM EST [facility]) Name Value Range Interpretation Code Description Data Mildred rce(s) Supporting Document(s) Thyrotropin [Units/volume] in Serum or Plasma 8.77 uIU/mL 0. 47-5.01 Above high normal MED[facility] ([facility]) Is patient fasting? N Thyroxine (T4) free [Mass/volume] in Serum or Plasma 0.95 ng/dL 0.93- 1.70 [facility] ([facility]) Is patient fasting? N ID Date Data Source [id number] 06/21/2020 10:06:00 AM EST MED[facility] ([facility]) Name Value Range Interpretation Code Description Data Mildred rce(s) Supporting Document(s) Basic Metabolic Pane Laboratory test result [facility] ([facility] Cardiac [facility]atheter[facility]) Is patient fasting? N Sodium 138 meq/L 134-153 [facility] ([facility]) Is patient fasting? N Potassium 4.3 meq/L 3.6-5.0 [facility] ([facility] Cardiac Catheter[facility]) Is patient fasting? N Chloride 98 meq/L 98-107 [facility] ([facility] Cardiac [facility]atheter[facility]) Is patient fasting? N Co2 30 meq/L 22-30 [facility] ([facility] Cardiac Catheter[facility]) Is patient fasting? N Glucose 100 mg/dL 65-110 [facility] ([facility] Cardiac [facility]atheter[facility]) Is patient fasting? N BUN 20 mg/dL 7-21 [facility] ([facility]) Is patient fasting? N BUN/Creat 22 8-27 [facility] ([facility]) Is patient fasting? N Creatinine 0.9 mg/dL 0.7-1.5 [facility] ([facility]) Is patient fasting? N Calcium 10.3 mg/dL 8.4-10.2 Above high normal [facility] ([facility]) Is patient fasting? N Age 75 yrs [facility] ([facility]) Is patient fasting? N Anion Gap 10.0 mmol/L 8.0-16.0 [facility] ([facility]) Is patient fasting? N Afr Amer GFR Laboratory test result [facility] ([facility]) Is patient fasting? N Non-Aa GFR Laboratory test result ME DENT ([facility]) Is patient fasting? N ID Date Data Source [id number] 06/21/2020 08:01:00 PM [facility] Name Value Range Interpretation Code Description Data Mildred rce(s) Supporting Document(s) Thyrotropin [Units/volume] in Serum or Plasma by Detec tion limit <= 0.05 mIU/L 8.77 uIU/mL 0.47 - 5.01 H [facility] ID Date Data Source [id number] 06/21/2020 08:01:00 PM [facility] Name Value Range Interpretation Code Description Data Mildred rce(s) Supporting Document(s) Thyroxine (T4) free index in Serum or Plasma by calculation 0.95 NG/DL 0.93 - 1.70 [facility] ID Date Data Source [id number] 06/21/2020 07:49:00 PM [facility] Value Range Interpretation Code Description Data Mildred rce(s) Supporting Document(s) BASIC METABOLIC PANEL [facility] BASIC METABOLIC PANEL Sodium [Moles/volume] in Serum or Plasma 138 mEq/L 134 - 153 [facility] Potassium [Moles/volume] in Serum or Plasma 4.3 mEq/L 3.6 - 5.0 [facility] Chloride [Moles/volume] in Serum or Plasma 98 mEq/L 98 - 107 [facility] Carbon dioxide, total [Moles/volume] in Serum or Plasma 30 MEQ/L 22 - 30 [facility] Glucose [Mass/volume] in Serum or Plasma 100 MG/DL 65 - 110 [facility] BUN 20 MG/DL 7 - [facility] Creat[facility] [Mass/volume] in Serum or Plasma 0.9 MG/DL 0.7 - 1.5 [facility] BUN/CREAT 22 8 - 27 [facility] al Calcium [Mass/volume] in Serum or Plasma 10.3 MG/DL 8.4 - 10.2 H [facility] Anion gap 3 in Serum or Plasma 10.0 mmol/L 8.0 - 16.0 [facility] AGE 75 yrs [facility] al AFR AMER GFR >60 mL/min [facility] Ho spital NON-AA GFR >60 mL/min [facility] ital Male GFR Inter prentation 20-49 yrs >60 mL/min Normal 50-59 yrs >56 mL/min Normal 60-69 yrs >49 mL/min Normal 70-79yrs >42 mL/min Normal 80 and above >35 mL/min Normal Female GFR Interpretation 20-39 yrs >60 mL/min Normal 40-49 yrs >58 mL/min Normal 50-59 yrs >51 mL/min Normal 60-69 yrs >45 mL/min Normal 70-79 yrs >39 mL/min Normal 80 and above >32 mL/min Normal ID Date Data Source [id number] 06/21/2020 08:42:00 AM EST [facility] ([facility]) Name Value Range Interpretation Code Description Data Mildred rce(s) Supporting Document(s) Prostate specific Ag [Mass/volume] in Serum or Plasma 3.93 ng/mL 0.00 -4.00 [facility]) \\BLDo\\PSA INTERPRETATION\\BLDx\\ The PSA assay should not be used alone for a screening test or diagnosis for presence or absence of malignant disease. Predictions of disease recurrence should not be based solely on values obtained from serial patient serum values. The PSA result was determined by "[employer]", on the Jeffry ANA 6000. Values obtained with different assay methods or kits cannot be used interchangeably. ID Date Data Source [id number] 06/21/2020 06:52:00 PM EST [facility] Name Value Range Interpretation Code Description Data Mildred rce(s) Supporting Document(s) Prostate specific Ag [Mass/volume] in Serum or Plasma 3.93 ng/mL 0.00 - 4.00 [facility] \\BLDo\\PSA INTERPRETA TION\\BLDx\\ The PSA assay should not be used alone for a screening test or diagnosis for presence or absence of malignant disease. Predictions of disease recurrence should not be based solely on values obtained from serial patient serum values. The PSA result was determined by "[employer]", on the Jeffry ANA 6000. Values obtained with different assay methods or kits cannot be used interchangeably. ID Date Data Source [id number] 05/14/2020 09:30:00 AM EST [facility] Name Value Range Interpretation Code Description Data Mildred rce(s) Supporting Document(s) SARS coronavirus 2 RNA [facility] This lab was ordered by [facility] and reported by [facility]. ID Date Data Source [id number] 02/29/2020 12:31:00 PM EDT [facility] ([facility]) Name Value Range Interpretation Code Description Data Mildred rce(s) Supporting Document(s) Laboratory test finding (navigational concept) Laboratory test result [facility] ([facility]) ID Date Data Source [id number] 02/29/2020 12:31:00 PM EDT [facility] Name Value Range Interpretation Code Description Data Mildred rce(s) Supporting Document(s) Cholesterol [Mass/volume] in Serum or Plasma 89 mg/dL Normal (applies to non- numeric results) [facility] ([facility] Cholesterol in HDL [Mass/volume] in Serum or Plasma 30 mg/dL Below low normal [facility] ([facility]) Cholesterol in LDL [Mass/volume] in Serum or Plasma by calculation 37 mg/dL(calc) Normal (applies to non-numeric results) [facility] ([facility]) <content>Reference range: <100</content>
<content></content>
<content>Desirable range <100 mg/dL for primary prevention;</content>
<content><70 mg/dL for patients with CHD or diabetic patients</content>
<content>with > or = 2 CHD risk factors.</content>
<content></content>
<content>LDL-C is now calculated using the Marino-Schultz</content>
<content>calculation, which is a validated novel method providing</content>
<content>better accuracy than the Friedewald equation in the</content>
<content>estimation of LDL- C.</content>
<content>Marino SS et al. MENA. 2013;310(19): 9330-4196</content>
<content>(http://SnapLogic.Yovigo/faq/FAQ1 64)</content>
<content></content> Triglyceride [Mass/volume] in Serum or Plasma 140 mg/dL Normal (applies to non-numeric results) [facility] ([facility]) Cholesterol.total/Cholesterol in HDL [Mass Ratio] in Serum o r Plasma 3.0 (calc) Normal (applies to non-numeric results) [facility] ([facility]) Service comment Laboratory test result [facility] ([facility]) We received your handwritten test order and performed the AMA defined lipid panel. If this is not what you intended to order, please contact your local retail client manager immediately so that we may adjust our billing appropriately. You may also inquire about alternative or additional testing. Cholesterol non HDL [Mass/volume] in Serum or Plasma 59 mg/dL(ca lc) Normal (applies to non-numeric results) [facility] ([facility]) <content>For patients with diabetes plus 1 major ASCVD risk</content>
<content>factor, treating to a non-HDL-C goal of <100 mg/dL</content>
<content>(LDL-C of <70 mg/dL) is considered a thera peutic</content>
<content>option.</content>
<content></content> ID Date Data Source [id number] 02/29/2020 12:31:00 PM EDT [facility] ([facility]) Name Value Range Interpretation Code Description Data Mildred rce(s) Supporting Document(s) Creatine Kinase, Total 99 U/L 44-196 Normal (applies to non-n umeric results) [facility] ([facility]) Aspartate aminotransferase [Enzymatic activity/volume] in Serum or Plasma 17 U/L 10-35 Normal (applies to non-numeric results) [facility] ([facility]) Alanine aminotransferase [Enzymatic activity/volume] in Seru m or Plasma 20 U/L 9-46 Normal (applies to non-numeric results) [facility] ([facility]) ID Date Data Source [id number] 03/01/2020 07:04:00 AM EDT [facility] Received: 02/29/2020 at 12:32:00 QPT : [facility], [address]ista[address], [address] [place] [address], [phone], Trey Campbell MD Received: 02/29/2020 at 12:32:00 QPT : [facility], [address], [address] [place] [address], [phone], Trey Campbell MD Received: 02/29/2020 at 12:32:00 QPT : [facility], [address], [address] [place] [address], [phone], Trey Campbell MD Received: 02/29/2020 at 12:32:00 QPT : [facility], Bautista[address]iles, [address] [place] [address], [phone], Trey Campbell MD Name Value Range Interpretation Code Description Data Mildred rce(s) Supporting Document(s) Cholesterol [Mass/volume] in Serum or Plasma 89 mg/dL <20 0 Normal (applies to non-numeric results) [facility] Cholesterol in HDL [Mass/volume] in Serum or Plasma 30 mg/dL > OR = 40 Below low normal [facility] Triglyceride [Mass/volume] in Serum or Plasma 140 mg/dL <1 50 Normal (applies to non-numeric results) [facility] Cholesterol in LDL [Mass/volume] in Serum or Plasma by calculation 37 mg/dL (calc) Normal (applies to non-numeric results) [facility] Reference range: <100Desirable range <10 0 mg/dL for primary prevention;<70 mg/dL for patients with CHD or diabetic patientswith > or = 2 CHD risk factors.LDL-C is now calculated using the Marino-Hopkinscalculation, which is a validated novel method providingbetter accuracy than the Friedewald equation in theestimation of LDL-C.Marino SS et al. MENA. 2013;310(91): 4490-9906(http://education.Intelligent Mobile Support.ClickSquared/faq/QYD892) Cholesterol.total/Cholesterol in HDL [Mass Ratio] in Serum o r Plasma 3.0 (calc) <5.0 Normal (applies to non-numeric results) [facility] Cholesterol non HDL [Mass/volume] in Serum or Plasma 59 mg/dL (c alc) <130 Normal (applies to non-numeric results) [facility] For patients with diabetes plus 1 major ASCVD riskfactor, treating to a non-HDL-C goal of <100 mg/dL(LDL-C of <70 mg/dL) is considered a therapeuticoption. Service comment [facility] We received your handwritten test order andperformed the AMA defined lipid panel. Ifthis is not what you intended to order, pleasecontact your local client service representativeimmediately so that we may adjust our billingappropriately. You may also inquire aboutalternative or additional testing. ID Date Data Source [id number] 03/01/2020 07:04:00 AM EDT [facility] Received: 02/29/2020 at 12:32:00 QPT : [facility], [address], [address] [place] [address], [phone], Trey Campbell MD Received: 02/29/2020 at 12:32:00 QPT : [facility], [address] [place] [address], [phone] MD Received: 02/29/2020 at 12:32:00 QPT : [facility], [address] [place] [address], [phone] MD Received: 02/29/2020 at 12:32:00 QPT : [facility], [address] [place] [address], [phone], Trey Campbell MD Name Value Range Interpretation Code Description Data Mildred rce(s) Supporting Document(s) Aspartate aminotransferase [Enzymatic activity/volume] in Serum or Plasma 17 U/L 10-35 Normal (applies to non-numeric results) [facility] ID Date Data Source [id number] 03/01/2020 07:04:00 AM EDT [facility] Received: 02/29/2020 at 12:32:00 QPT : [facility], [address], [address] [place], [phone], Trey Campbell MD Received: 02/29/2020 at 12:32:00 QPT : [facility], [address], [address] [place], [phone], Trey Campbell MD Received: 02/29/2020 at 12:32:00 QPT : [facility], [address], [address] [place], [phone], Trey Campbell MD Received: 02/29/2020 at 12:32:00 QPT : [facility], [address], [address] [place], [phone], Trey Campbell MD Name Value Range Interpretation Code Description Data Mildred rce(s) Supporting Document(s) Alanine aminotransferase [Enzymatic activity/volume] in Seru m or Plasma 20 U/L 9-46 Normal (applies to non-numeric results) [facility] ID Date Data Source [id number] 03/01/2020 07:04:00 AM EDT [facility] Received: 02/29/2020 at 12:32:00 QPT : [facility], [address], [address] [place], [phone] MD Received: 02/29/2020 at 12:32:00 QPT : [facility], [address], [address] [place], [phone] MD Received: 02/29/2020 at 12:32:00 QPT : [facility], [address], [address] [place], [phone] MD Received: 02/29/2020 at 12:32:00 QPT : [facility], [address], [address] [place], [phone] MD Name Value Range Interpretation Code Description Data Mildred rce(s) Supporting Document(s) Creatine kinase [Enzymatic activity/volume] in Serum or Plasma 9 9 U/L 44-196 Normal (applies to non-numeric results) [facility] ID Date Data Source [id number] 09/17/2019 07:59:00 AM EDT [facility] ([facility]) Name Value Range Interpretation Code Description Data Mildred rce(s) Supporting Document(s) Laboratory test finding (navigational concept) Laboratory test result [facility] ([facility]) FASTING:YES FASTING: YES ID Date Data Source [id number] 09/17/2019 07:59:00 AM EDT [facility] ([facility]) Name Value Range Interpretation Code Description Data Mildred rce(s) Supporting Document(s) Cholesterol [Mass/volume] in Serum or Plasma 121 mg/dL Normal (applies to non- numeric results) [facility] ([facility] FASTING:YES FASTING: YES Cholesterol in HDL [Mass/volume] in Serum or Plasma 36 mg/dL Below low normal [facility] ([facility]) FASTING:YES FASTING: YES Cholesterol in LDL [Mass/volume] in Serum or Plasma by calculation 59 mg/dL(calc) Normal (applies to non-numeric results) [facility] ([facility]) FASTING:YES FASTING: YES Triglyceride [Mass/volume] in Serum or Plasma 188 mg/dL A urszula high normal [facility] ([facility]) FASTING:YES FASTING: YES Cholesterol non HDL [Mass/volume] in Serum or Plasma 85 mg/dL(ca lc) Normal (applies to non-numeric results) [facility] ([facility]) FASTING:YES FASTING: YES Cholesterol.total/Cholesterol in HDL [Mass Ratio] in Serum o r Plasma 3.4 (calc) Normal (applies to non-numeric results) [facility] ([facility]) FASTING:YES FASTING: YES Service comment Laboratory test result [facility] ([facility]) FASTING:YES FASTING: YES ID Date Data Source [id number] 09/17/2019 07:59:00 AM EDT [facility] ([facility]) Name Value Range Interpretation Code Description Data Mildred rce(s) Supporting Document(s) Creatine Kinase, Total 120 U/L 44-196 Normal (applies to non-n umeric results) [facility] ([facility]) FASTING:YES FASTING: YES Aspartate aminotransferase [Enzymatic activity/volume] in Serum or Plasma 17 U/L 10-35 Normal (applies to non-numeric results) [facility] ([facility]) FASTING:YES FASTING: YES Alanine aminotransferase [Enzymatic activity/volume] in Seru m or Plasma 19 U/L 9-46 Normal (applies to non-numeric results) [facility] ([facility]) FASTING:YES FASTING: YES ID Date Data Source [id number] 09/18/2019 05:14:00 AM EDT [facility] FASTING:YESFASTING: YESReceived: 020 at 08:01:00 QPT: [facility], [address], [address] [place] [address], [phone], Trey Campbell MD Received: 09/17/2019 at 08:01:00 QPT : [facility], [address] [place] [address], [phone], Trey Campbell MD Received: 09/17/2019 at 08:01:00 QPT : [facility], [address], [address] [place] [address], [phone], Trey Campbell MD Received: 09/17/2019 at 08:01:00 QPT : [facility], [address], [address] [place] [address], [phone], Trey Campbell MD Name Value Range Interpretation Code Description Data Mildred rce(s) Supporting Document(s) Cholesterol [Mass/volume] in Serum or Plasma 121 mg/dL <20 0 Normal (applies to non-numeric results) [facility] Cholesterol in HDL [Mass/volume] in Serum or Plasma 36 mg/dL > OR = 40 Below low normal [facility] Triglyceride [Mass/volume] in Serum or Plasma 188 mg/dL <150 Above high normal [facility] Cholesterol in LDL [Mass/volume] in Serum or Plasma by calculation 59 mg/dL (calc) Normal (applies to non-numeric results) [facility] Reference range: <100Desirable range <10 0 mg/dL for primary prevention;<70 mg/dL for patients with CHD or diabetic patientswith > or = 2 CHD risk factors.LDL-C is now calculated using the Gerardocalculation, which is a validated novel method providingbetter accuracy than the Friedewald equation in theestimation of LDL-C.Marino RING et al. MENA. 2013;310(19): 1751-6706(http://education.Yovigo/faq/PYR603) Cholesterol.total/Cholesterol in HDL [Mass Ratio] in Serum o r Plasma 3.4 (calc) <5.0 Normal (applies to non-numeric results) [facility] Cholesterol non HDL [Mass/volume] in Serum or Plasma 85 mg/dL (c alc) <130 Normal (applies to non-numeric results) [facility] For patients with diabetes plus 1 major ASCVD riskfactor, treating to a non-HDL-C goal of <100 mg/dL(LDL-C of <70 mg/dL) is considered a therapeuticoption. Service comment [facility] We received your handwritten test order andperformed the AMA defined lipid panel. Ifthis is not what you intended to order, pleasecontact your local client service representativeimmediately so that we may adjust our billingappropriately. You may also inquire aboutalternative or additional testing. ID Date Data Source [id number] 09/18/2019 05:14:00 AM EDT Cassy Trevino ticlaurie FASTING:YESFASTING: YESReceived: 020 at 08:01:00 QPT: [facility], [address] [place] [address], [phone] MD Received: 09/17/2019 at 08:01:00 QPT : [facility], [address] [place] [address], [phone] MD Received: 09/17/2019 at 08:01:00 QPT : [facility] [address], [address] [place] [address], [phone] MD Received: 09/17/2019 at 08:01:00 QPT : [address], [address] [place] [address], [phone], Trey Campbell MD Name Value Range Interpretation Code Description Data Mildred rce(s) Supporting Document(s) Aspartate aminotransferase [Enzymatic activity/volume] in Serum or Plasma 17 U/L 10-35 Normal (applies to non-numeric results) [facility] ID Date Data Source [id number] 09/18/2019 05:14:00 AM EDT [facility] FASTING:YESFASTING: YESReceived: 020 at 08:01:00 QPT: [facility], [address], [address] [place], [phone] MD Received: 09/17/2019 at 08:01:00 QPT : [facility], [address], [address] [place], [phone] MD Received: 09/17/2019 at 08:01:00 QPT : [facility], [address], [address] [place], [phone] MD Received: 09/17/2019 at 08:01:00 QPT : [facility], [address], [address] [place], [phone] MD Name Value Range Interpretation Code Description Data Mildred rce(s) Supporting Document(s) Alanine aminotransferase [Enzymatic activity/volume] in Seru m or Plasma 19 U/L 9-46 Normal (applies to non-numeric results) [facility] ID Date Data Source [id number] 09/18/2019 05:14:00 AM EDT [facility] FASTING:YESFASTING: YESReceived: 020 at 08:01:00 QPT: [facility], [address], [address] [place], [phone] MD Received: 09/17/2019 at 08:01:00 QPT : [facility], [address], [address] [place], [phone] MD Received: 09/17/2019 at 08:01:00 QPT : [facility], [address], [address] [place], [phone], Trey Campbell MD Received: 09/17/2019 at 08:01:00 QPT : [facility], [address], [address] [place], [phone], Trey Campbell MD Name Value Range Interpretation Code Description Data Mildred rce(s) Supporting Document(s) Creatine kinase [Enzymatic activity/volume] in Serum or Plasma 1 20 U/L 44-196 Normal (applies to non-numeric results) [facility] Procedure Social History Code Duration Value Status Description Data Source(s ) Smoking 05/30/2020 12:00:00 AM EST Quit [facility] Vital Signs ID Date Data Source UNK Name Value Range Interpretation Code Description Data Source(s) Body surface area Derived from formula 2.23 m2 2.23 m2 [facility] ([facility]) Body mass index (BMI) [Ratio] 35.5 kg/m2 35.5 k g/m2 [facility] ([facility]) Body height 69 [in_i] 69 [in_i] [facility] ([facility]) 5'9" Body weight 108.921 kg 108.921 kg [facility] ([facility]) Body weight 240.12 [lb_av] 240.12 [lb_av] [facility] ([facility]) Oxygen saturation in Arterial blood by Pulse oximetry 97 % 97 % [facility] ([facility]) Respiratory rate 18 /min 18 /min [facility] ( [facility]) Body temperature 97.2 [degF] 97.2 [degF] [facility] ([facility]) Heart rate 58 /min 58 /min [facility] ([facility]) Diastolic blood pressure 72 mm[Hg] 72 mm[Hg] [facility] ([facility]) Systolic blood pressure 128 mm[Hg] 128 mm[Hg] [facility] ([facility]) Body surface area Derived from formula 2.23 m2 2.23 m2 [facility] Body weight 108.467 kg 108.467 kg [facility] ([facility], ) Willard body weight 160 [lb_av] 160 [lb_av] [facility] ([facility]) Body mass index (BMI) [Ratio] 35.3 kg/m2 35.3 k g/m2 [facility] ([facility]) Body weight 239.12 [lb_av] 239.12 [lb_av] [facility] ([facility]) Body height 69 [in_i] 69 [in_i] [facility] ([facility]) 5'9" Diastolic blood pressure 66 mm[Hg] 66 mm[Hg] [facility] ([facility]) Systolic blood pressure 124 mm[Hg] 124 mm[Hg] [facility] ([facility]) Body height 68 [in_i] 68 [in_i] [facility] 5'8" Heart rate 86 /min 86 /min [facility] Diastolic blood pressure 80 mm[Hg] 80 mm[Hg] [facility] ([facility]) Systolic blood pressure 142 mm[Hg] 142 mm[Hg] [facility] ([facility]) Body surface area Derived from formula 2.21 m2 2.21 m2 [facility] ([facility]) Oxygen saturation in Arterial blood by Pulse oximetry 97 % 97 % [facility]) Body mass index (BMI) [Ratio] 36.6 kg/m2 36.6 k g/m2 [facility] ([facility]) 02/29/20 Body height 68 [in_i] 68 [in_i] [facility] ([facility] 5'8" Body weight 241.00 [lb_av] 241.00 [lb_av] [facility] ([facility]) Heart rate 66 /min 66 /min [facility] ([facility]) Diastolic blood pressure 78 mm[Hg] 78 mm[Hg] [facility] ([facility]) Systolic blood pressure 130 mm[Hg] 130 mm[Hg] M [facility] ([facility] Body surface area Derived from formula 2.31 m2 2.31 m2 [facility] ([facility]) Body weight 117.653 kg 117.653 kg [facility] ([facility]) [place] body weight 160 [lb_av] 160 [lb_av] [facility] T ([facility]) Body mass index (BMI) [Ratio] 38.3 kg/m2 38.3 k g/m2 [facility] ([facility]) Body weight 259.38 [lb_av] 259.38 [lb_av] [facility] T ([facility]) Body height 69 [in_i] 69 [in_i] [facility] ([facility]) 5'9" Diastolic blood pressure 84 mm[Hg] 84 mm[Hg] [facility] ([facility]) Systolic blood pressure 170 mm[Hg] 170 mm[Hg] [facility] ([facility]) Body mass index (BMI) [Ratio] 40.6 kg/m2 40.6 k g/m2 [facility] ([facility], [facility]) Body height 69 [in_i] 69 [in_i] [facility] ([facility], [facility]) 5'9" Body weight 275.00 [lb_av] 275.00 [lb_av] [facility] T ([facility], [facility]) Body temperature 97.9 [degF] 97.9 [degF] [facility] ([facility], [facility]) Oxygen saturation in Arterial blood by Pulse oximetry 96 % 96 % [facility] ([facility], [facility]) Respiratory rate 16 /min 16 /min [facility] ( [facility], [facility]) Heart rate 71 /min 71 /min [facility] ([facility], [facility]) Diastolic blood pressure 73 mm[Hg] 73 mm[Hg] [facility] ([facility], [facility]) Systolic blood pressure 124 mm[Hg] 124 mm[Hg] [facility] ([facility], [facility]) Body weight 128.822 kg 128.822 kg [facility] ([facility]) Body mass index (BMI) [Ratio] 41.9 kg/m2 41.9 k g/m2 [facility] ([facility]) Body weight 284.00 [lb_av] 284.00 [lb_av] [facility] T ([facility], ) Body height 69 [in_i] 69 [in_i] [facility] ([facility], ) 5'9" Diastolic blood pressure 82 mm[Hg] 82 mm[Hg] [facility] ([facility], ) Systolic blood pressure 142 mm[Hg] 142 mm[Hg] [facility] ([facility], ) Body surface area Derived from formula 2.41 m2 2.41 m2 [facility] ([facility]) Body mass index (BMI) [Ratio] 42.4 kg/m2 42.4 k g/m2 [facility] ([facility]) Body height 69 [in_i] 69 [in_i] [facility] ([facility]) 5'9" Body weight 130.183 kg 130.183 kg [facility] ([facility]) Body weight 287.00 [lb_av] 287.00 [lb_av] [facility] T ([facility]) Oxygen saturation in Arterial blood by Pulse oximetry 97 % 97 % [facility] ([facility]) Respiratory rate 18 /min 18 /min [facility] ( [facility]) Body temperature 98.2 [degF] 98.2 [degF] [facility] ([facility]) Heart rate 76 /min 76 /min [facility] ([facility]) Diastolic blood pressure 70 mm[Hg] 70 mm[Hg] [facility] ([facility]) Systolic blood pressure 140 mm[Hg] 140 mm[Hg] [facility] ([facility]) Body surface area 2.41 m2 2.41 m2 [facility] ([facility])
[2020-06-29] MEDS ORDERED: LIDOCAINE 2% 100MG/5ML SDV (FOR ANES.) As Ordered ONE (10:36)
[2020-06-29] MEDS ORDERED: propofoL 500 MG/50 ML VIAL As Ordered ONE (10:36)
--- NOTE | 2020-06-29 11:11 | ROOR ---
Patient Name: Michi Sheikh Procedure Date: 06/29/2020 10:33 AM Date of : 1945 Age: 75 Room: [facility] Gender: Male Note Status: Finalized Procedure: Colonoscopy Indications: High risk colon cancer surveillance: Personal history of colon cancer Providers: Gerber Zelaya MD Referring MD: JAMAR FRANCIS NP Requesting Provider: Medicines: Monitored Anesthesia Care Complications: No immediate complications. Procedure: Pre-Anesthesia Assessment: - Prior to the procedure, a History and Physical was performed, and patient medications and allergies were reviewed. The patient is competent. The risks and benefits of the procedure and the sedation options and risks were discussed with the patient. All questions were answered and informed consent was obtained. Patient identification and proposed procedure were verified by the physician, the nurse and the anesthesiologist in the endoscopy suite. Mental Status Examination: alert and oriented. Airway Examination: normal oropharyngeal airway and neck mobility. Respiratory Examination: clear to auscultation. CV Examination: normal. Prophylactic Antibiotics: The patient does not require prophylactic antibiotics. Prior Anticoagulants: The patient has taken Eliquis (apixaban), last dose was 3 days prior to procedure. ASA Grade Assessment: III - A patient with severe systemic disease. After reviewing the risks and benefits, the patient was deemed in satisfactory condition to undergo the procedure. The anesthesia plan was to use monitored anesthesia care (MAC). Immediately prior to administration of medications, the patient was re-assessed for adequacy to receive sedatives. The heart rate, respiratory rate, oxygen saturations, blood pressure, adequacy of pulmonary ventilation, and response to care were monitored throughout the procedure. The physical status of the patient was re-assessed after the procedure. The Colonoscope was introduced through the anus and advanced to the ileocolonic anastomosis. The colonoscopy was performed without difficulty. The patient tolerated the procedure well. The quality of the bowel preparation was adequate to identify polyps. Findings: The perianal and digital rectal examinations were normal. Two sessile polyps were found in the transverse colon. The polyps were 2 to 5 mm in size. These polyps were removed with a hot snare. Resection and retrieval were complete. Estimated blood loss: none. Three sessile polyps were found in the rectum and descending colon. The polyps were 2 to 4 mm in size. These polyps were removed with a hot snare. Resection and retrieval were complete. Estimated blood loss: none. There was evidence of a prior [id number] ileo-colonic anastomosis in the rectum. This was patent and was characterized by healthy appearing mucosa. The anastomosis was traversed. There was evidence of a prior functional end-to-end colo-rectal anastomosis in the rectum. This was patent and was characterized by healthy appearing mucosa. The anastomosis was traversed. The retroflexed view of the distal rectum and anal verge was normal and showed no anal or rectal abnormalities. Impression: - Two 2 to 5 mm polyps in the transverse colon, removed with a hot snare. Resected and retrieved. - Three 2 to 4 mm polyps in the rectum and in the descending colon, removed with a hot snare. Resected and retrieved. - Patent [id number] ileo-colonic anastomosis, characterized by healthy appearing mucosa. - Patent functional end-to-end colo-rectal anastomosis, characterized by healthy appearing mucosa. - The distal rectum and anal verge are normal on retroflexion view. Recommendation: - Discharge patient to home (ambulatory). - Resume Eliquis (apixaban) at prior dose tomorrow. Refer to managing physician for further adjustment of therapy. - Telephone my office for pathology results in 1 week. Procedure Code(s): --- Professional --- 53204, Colonoscopy, flexible; with removal of tumor(s), polyp(s), or other lesion(s) by snare technique Diagnosis Code(s): --- Professional --- Z85.038, Personal history of other malignant neoplasm of large intestine K62.1, Rectal polyp K63.5, Polyp of colon Z98.0, Intestinal bypass and anastomosis status CPT copyright 2019 [employer]. All rights reserved. The codes documented in this report are preliminary and upon associate curator review may be revised to meet current compliance requirements. Gerber Zelaya MD Gerber Zelaya MD 06/29/2020 11:10:33 AM Electronically signed by Gerber Zelaya MD Number of Addenda: 0 Note Initiated On: 06/29/2020 10:33 AM Estimated Blood Loss: Estimated blood loss: none.
[2020-06-29 11:40] VITALS: BP 165/71
== END 2020-06-29 11:55 | disposition home or self-care (01) ==
LOC: M OPP 08:50
PROVIDERS: ATTEND Surgery
DX: Z12.11 Encounter for screening for malignant neoplasm of colon (principal); Z85.038 Personal history of other malignant neoplasm of large intestine; K63.5 Polyp of colon; I25.10 Atherosclerotic heart disease of native coronary artery without angina pectoris; I10 Essential (primary) hypertension; E78.5 Hyperlipidemia, unspecified; M19.90 Unspecified osteoarthritis, unspecified site; I48.91 Unspecified atrial fibrillation; Z98.0 Intestinal bypass and anastomosis status; Z95.5 Presence of coronary angioplasty implant and graft; Z86.14 Personal history of Methicillin resistant Staphylococcus aureus infection; Z87.891 Personal history of nicotine dependence; Z79.01 Long term (current) use of anticoagulants; Z79.82 Long term (current) use of aspirin; Z79.899 Other long term (current) drug therapy; Z80.0 Family history of malignant neoplasm of digestive organs

== ENCOUNTER → 2021-01-18 | Outpatient (REF) | payer MEDICARE, OTHER ==
[~2021-01-18] MED LIST changes: -NS 1,000 ML IV ONE
== END ==
LOC: M LAB REF 17:56
PROVIDERS: ATTEND Physician Assistant
DX: D04.61 Carcinoma in situ of skin of right upper limb, including shoulder (principal)

== ENCOUNTER → 2021-04-04 | Outpatient (REF) | payer MEDICARE, OTHER | LOC: M LAB REF 17:23 | PROVIDERS: ATTEND Dermatology | DX: T14.90XD Injury, unspecified, subsequent encounter (principal) ==

== ENCOUNTER → 2021-05-03 | Outpatient (REF) | payer MEDICARE, OTHER | LOC: M LAB REF 17:19 | PROVIDERS: ATTEND Dermatology | DX: T81.30XA Disruption of wound, unspecified, initial encounter (principal) | CPT/HCPCS: 87070; 87077; 87186; 87205; G0463 ==

== ENCOUNTER 2023-07-26 09:13 | Day surgery (SDC) | payer MEDICARE, OTHER ==
[~2023-07-26] VITALS: Ht 172.7 cm; Wt 106.6 kg
[~2023-07-26 09:13] MED LIST changes: +ATOR40TA75 PO; +CLOP75TA99 PO; -ELIQ5TAB; +ELIQ5TAB PO; +LEVO50TA5 PO; +LOSA25TA13 PO; -LOSA25TA14; -PLAV1TAB2 PO; +TAMS1CAP17 PO
[2023-07-26] MEDS: NS 1,000 ML IV ONE (09:43)
[2023-07-26] MEDS ORDERED: LIDOCAINE 2% 100MG/5ML SDV (FOR ANES.) As Ordered ONE (09:50)
[2023-07-26] MEDS ORDERED: propofoL 200 MG/20 ML VIAL As Ordered ONE (09:50)
[2023-07-26 11:12] VITALS: BP 107/59; TEMP 96.4; O2SAT 94
== END 2023-07-26 11:16 | disposition home or self-care (01) ==
LOC: M OPP 09:13
PROVIDERS: ATTEND Surgery
DX: Z12.11 Encounter for screening for malignant neoplasm of colon (principal); Z85.038 Personal history of other malignant neoplasm of large intestine; Z80.0 Family history of malignant neoplasm of digestive organs; D12.6 Benign neoplasm of colon, unspecified; K63.5 Polyp of colon; Z98.0 Intestinal bypass and anastomosis status; Z79.01 Long term (current) use of anticoagulants; Z79.02 Long term (current) use of antithrombotics/antiplatelets; Z79.82 Long term (current) use of aspirin; Z79.890 Hormone replacement therapy; Z79.899 Other long term (current) drug therapy